=== PATIENT | male | born 1950 | race Caucasian/White ===

== ENCOUNTER 2018-07-22 17:19 | Emergency (ER) | payer MEDICARE, BC ==
[~2018-07-22] VITALS: Ht 177.8 cm; Wt 63.6 kg
[2018-07-22 18:27] LABS: CLARITY,URINE CLEAR (Clear); COLOR,URINE YELLOW (Yellow); GLUCOSE, URINE NEGATIVE (Neg); KETONES,URINE NEGATIVE (Neg); LEUKOCYTE ESTERASE ,URINE NEGATIVE (Neg); NITRITES, URINE NEGATIVE (Neg); OCCULT BLOOD,URINE NEGATIVE (Neg); PH,URINE 6.5 (4.8-8.0); PROTEIN,URINE NEGATIVE (Neg); UA COLLECTION TYPE CLN CATCH MIDSTREAM; UROBILINOGEN,URINE 0.2 E.U/dL (0.2-1.0)
[2018-07-22 18:28] LABS: BASOPHILS % (AUTO) 0.3 % (0-1); EOSINOPHILS # (AUTO) 0.4 X10'3 (0-0.9); EOSINOPHILS % (AUTO) 4.1 % (0-6); HEMATOCRIT 38.6 % (42.0-52.0); HEMOGLOBIN 12.9 g/dl (14.0-17.9); LYMPHOCYTES # (AUTO) 1.2 X10'3 (1.1-4.8); LYMPHOCYTES % (AUTO) 12.9 % (21-51); MEAN CORPUSCULAR HEMOGLOBIN 29.6 PG (27.0-31.0); MEAN CORPUSCULAR HGB CONC 33.4 g/dL (33.0-36.5); MEAN CORPUSCULAR VOLUME 88.5 FL (78-98); MEAN PLATELET VOLUME 8.3 FL (7.4-10.4); MONOCYTES # (AUTO) 0.8 X10'3 (0-0.9); MONOCYTES % (AUTO) 8.7 % (2-12); PLATELET COUNT 268 X10'3 (140-440); RED BLOOD COUNT 4.36 X10'6 (4.70-6.10); RED CELL DISTRIBUTION WIDTH 14.4 % (11.5-14.5); WHITE BLOOD COUNT 9.4 X10'3 (4.5-11.0)
[2018-07-22 18:34] LABS: ALANINE AMINOTRANSFERASE 24 U/L (12-78); ALBUMIN 4.4 G/DL (3.4-5.0); ALBUMIN/GLOBULIN RATIO 1.2 (1.1-1.5); ALKALINE PHOSPHATASE 90 IU/L (46-116); ANION GAP 8 (8-16); ASPARTATE AMINO TRANSFERASE 17 U/L (10-37); BILIRUBIN,TOTAL 0.4 MG/DL (0.1-1.0); BLOOD UREA NITROGEN 14 MG/DL (7-18); BUN/CREATININE RATIO 14.7 (5.4-32.0); CALCIUM 9.4 MG/DL (8.5-10.1); CHLORIDE 103 MMOL/L (99-107); CREATININE 0.95 MG/DL (0.60-1.10); GLUCOSE 104 MG/DL (70-104); POTASSIUM 4.4 MMOL/L (3.5-5.1); SODIUM 143 MMOL/L (135-145); TOTAL CARBON DIOXIDE 32.2 MMOL/L (24-32); TOTAL PROTEIN 8.1 G/DL (6.4-8.2); eGFR 79 ML/MIN
[2018-07-22] MEDS ORDERED: morphine 4 MG/ML inj SYRINge IV ONE (18:50)
[2018-07-22] MEDS ORDERED: ondansetron/PF 4mg/2ml inj IV ONE (18:50)
[2018-07-22] MEDS ORDERED: normal saline 1000ml 1,000 ML IV ONE (19:50)
[2018-07-22] MEDS ORDERED: iohexol 350MG/ML 100ml bottle IV ONE (20:01)
[2018-07-22 20:15] VITALS: BP 173/101
[2018-07-22] MEDS ORDERED: POLY119P2 PO (21:49)
== END 2018-07-22 21:58 | disposition home or self-care (01) ==
LOC: ER 17:21
DX: K59.00 Constipation, unspecified (principal); K40.90 Unilateral inguinal hernia, without obstruction or gangrene, not specified as recurrent; F03.90 Unspecified dementia, unspecified severity, without behavioral disturbance, psychotic disturbance, mood disturbance, and anxiety; Z88.2 Allergy status to sulfonamides; Z79.899 Other long term (current) drug therapy
CPT/HCPCS: 36415; 74174; 80053; 81003; 83605; 85025; 85610; 96374; 96375; 99284; J2270; J2405; J7030; Q9967

== ENCOUNTER 2018-10-09 20:32 | Inpatient (IN) | payer MEDICARE, BC ==
[~2018-10-09] VITALS: Ht 180.3 cm; Wt 61.4 kg
[~2018-10-09 20:32] MED LIST: POLY119P2 PO
[2018-10-09 21:24] LABS: BASOPHILS % (AUTO) 0.5 % (0-1); EOSINOPHILS # (AUTO) 0.3 X10'3 (0-0.9); EOSINOPHILS % (AUTO) 3.3 % (0-6); HEMATOCRIT 38.4 % (42.0-52.0); HEMOGLOBIN 12.8 g/dl (14.0-17.9); LYMPHOCYTES # (AUTO) 1.8 X10'3 (1.1-4.8); LYMPHOCYTES % (AUTO) 19.4 % (21-51); MEAN CORPUSCULAR HEMOGLOBIN 29.8 PG (27.0-31.0); MEAN CORPUSCULAR HGB CONC 33.3 g/dL (33.0-36.5); MEAN CORPUSCULAR VOLUME 89.5 FL (78-98); MEAN PLATELET VOLUME 8.2 FL (7.4-10.4); MONOCYTES # (AUTO) 0.6 X10'3 (0-0.9); MONOCYTES % (AUTO) 6.9 % (2-12); NEUTROPHILS # (AUTO) 6.4 X10'3 (1.8-7.7); NEUTROPHILS % (AUTO) 69.9 % (42-75); PLATELET COUNT 277 X10'3 (140-440); RED BLOOD COUNT 4.29 X10'6 (4.70-6.10); RED CELL DISTRIBUTION WIDTH 15.2 % (11.5-14.5); WHITE BLOOD COUNT 9.2 X10'3 (4.5-11.0)
[2018-10-09 21:35] LABS: ALANINE AMINOTRANSFERASE 56 U/L (12-78); ALBUMIN 4.1 G/DL (3.4-5.0); ALBUMIN/GLOBULIN RATIO 1.2 (1.1-1.5); ALKALINE PHOSPHATASE 93 IU/L (46-116); ANION GAP 7 (8-16); ASPARTATE AMINO TRANSFERASE 64 U/L (10-37); BILIRUBIN,TOTAL 0.3 MG/DL (0.1-1.0); BLOOD UREA NITROGEN 19 MG/DL (7-18); BUN/CREATININE RATIO 18.3 (5.4-32.0); CALCIUM 9.3 MG/DL (8.5-10.1); CHLORIDE 104 MMOL/L (99-107); CREATININE 1.04 MG/DL (0.60-1.10); GLUCOSE 154 MG/DL (70-104); POTASSIUM 4.6 MMOL/L (3.5-5.1); SODIUM 144 MMOL/L (135-145); TOTAL CARBON DIOXIDE 32.6 MMOL/L (24-32); TOTAL PROTEIN 7.5 G/DL (6.4-8.2); eGFR 71 ML/MIN
[2018-10-09 22:17] LABS: AMYLASE 1135 U/L (25-115); LIPASE 18187 U/L (73-393)
[2018-10-09] MEDS ORDERED: normal saline 1000ML IV soln IVB ONE (22:25)
[2018-10-09] MEDS ORDERED: iohexol 300mg/ml 100ml inj. ONE (22:29)
[2018-10-10] MEDS ORDERED: mag hydrox/Alum hydrox/simeth 30ml oral suspension PO PRN (00:30)
[2018-10-10] MEDS ORDERED: ondansetron/PF 4mg/2ml inj IV PRN (00:30)
[2018-10-10] MEDS ORDERED: acetaminophen 325mg tablet PO PRN (00:30)
[2018-10-10] MEDS ORDERED: normal saline 1000ml 1,000 ML IV SCH (00:30)
[2018-10-10] MEDS ORDERED: HYDROmorphone inj. 0.5 MG/0.5 ML DISP.SYRIN IV PRN (00:30)
[2018-10-10] MEDS ORDERED: magnesium hydroxide 30ml (MOM) UD suspension PO PRN (00:30)
[2018-10-10] MEDS ORDERED: MEMA5TAB PO (00:32)
[2018-10-10] MEDS ORDERED: DONE5TAB7 PO (00:32)
[2018-10-10] MEDS ORDERED: MIRT15TA PO (00:32)
--- NOTE | 2018-10-10 00:35 | NUR ---
PT AT BS WITH CAREGIVER USING URINAL
--- NOTE | 2018-10-10 00:53 | NUR ---
Lenny, caregiver [phone]
[2018-10-10 01:04] LABS: CLARITY,URINE CLEAR (Clear); COLOR,URINE YELLOW (Yellow); GLUCOSE, URINE NEGATIVE (Neg); KETONES,URINE NEGATIVE (Neg); LEUKOCYTE ESTERASE ,URINE NEGATIVE (Neg); NITRITES, URINE NEGATIVE (Neg); OCCULT BLOOD,URINE NEGATIVE (Neg); PH,URINE 7.5 (4.8-8.0); PROTEIN,URINE NEGATIVE (Neg); UROBILINOGEN,URINE 0.2 E.U/dL (0.2-1.0)
--- NOTE | 2018-10-10 01:10 | NUR ---
moved pt to room 15 near nurses station. tucked him in to bed, lights dimmed.
[2018-10-10 01:16] LABS: UA COLLECTION TYPE VOIDED
[2018-10-10] MEDS: HYDROmorphone 1 mg/ml syringe IV PRN (01:59)
--- NOTE | 2018-10-10 02:52 | NUR ---
pt continues to sleep
[2018-10-10] MEDS ORDERED: mirtazapine 15mg tablet PO SCH (08:50)
[2018-10-10] MEDS ORDERED: magnesium 4gm in 100ml NS 100 ML IV PRN (08:50)
[2018-10-10] MEDS ORDERED: potassium CL 10mEq/100ml bag 100 ML IV PRN (08:50)
[2018-10-10] MEDS ORDERED: magnesium Cl slow-release 64mg tablet PO PRN (08:50)
[2018-10-10] MEDS ORDERED: potassium Cl 20 mEq SR tablet PO PRN ×2 (08:50)
[2018-10-10] MEDS: heparin, porcine 5000 units/ml vial SQ SCH ×2 (08:57→19:40)
[2018-10-10] MEDS ORDERED: mirtazapine 15mg tablet PO PRN (08:58)
[2018-10-10] MEDS: dextrose 5%-normal saline 1,000 ML IV SCH ×2 (09:08→22:40)
[2018-10-10 10:03] LABS: CHOLESTEROL 142 MG/DL (0-200); HDL CHOLESTEROL 48 MG/DL (35-60); LDL CHOLESTEROL 80 MG/DL (50-100); TRIGLYCERIDES 67 MG/DL (20-135)
[2018-10-10 10:15] LABS: LIPASE 6199 U/L (73-393)
--- NOTE | 2018-10-10 12:41 | NUR ---
LILLIE LAWRENCE AT BEDSIDE #[phone]
--- NOTE | 2018-10-10 12:41 | NUR ---
CHANGED LINENS, PT ON BED, NO DIAPER ON CHUX PER CAREGIVER.
--- NOTE | 2018-10-10 14:54 | NUR ---
PT TRIED TO LEAVE THE ROOM, IV PULLED OUT. REMOVED, CANNULA INTACT. NOTIFIED SERAFIN REY.
--- NOTE | 2018-10-10 15:30 | NUR ---
Received report from CANDIDO Salgado. patient arrived to floor. VSS. no complaints. bed alarm on.
[2018-10-10 15:35] VITALS: BP 130/79
--- NOTE | 2018-10-10 18:10 | NUR ---
Received report from CANDIDO Parsno. Patient is awake and alert on room air, in no apparent distress. Call light and items of frequent use within reach. Will continue to monitor.
--- NOTE | 2018-10-10 18:12 | NUR ---
Problems reprioritized. Patient report given, questions answered & plan of care reviewed with CANDIDO Solis and CANDIDO James.
[2018-10-10 20:00] VITALS: BP 148/78
[2018-10-11] VITALS: BP 121/74
[2018-10-11] MEDS: HYDROmorphone 1 mg/ml syringe IV PRN (00:24)
[2018-10-11] MEDS: LORazepam 2 mg/ml vial IV PRN ×2 (01:42→07:30)
--- NOTE | 2018-10-11 06:35 | NUR ---
Problems reprioritized. Patient report given, questions answered & plan of care reviewed with CANDIDO Murrell.
--- NOTE | 2018-10-11 06:48 | NUR ---
Patient in room [facility] 358. I have received report from Irma REY and Erika REY and had the opportunity to ask questions and assume patient care.
[2018-10-11 07:00] VITALS: BP 162/100
[2018-10-11 07:42] LABS: ALANINE AMINOTRANSFERASE 62 U/L (12-78); ALBUMIN 3.7 G/DL (3.4-5.0); ALBUMIN/GLOBULIN RATIO 1.2 (1.1-1.5); ALKALINE PHOSPHATASE 100 IU/L (46-116); ANION GAP 5 (8-16); ASPARTATE AMINO TRANSFERASE 28 U/L (10-37); BILIRUBIN,TOTAL 0.5 MG/DL (0.1-1.0); BLOOD UREA NITROGEN 9 MG/DL (7-18); BUN/CREATININE RATIO 9.6 (5.4-32.0); CALCIUM 9.1 MG/DL (8.5-10.1); CHLORIDE 111 MMOL/L (99-107); CHOL/HDL RATIO 3.2 (0.00-4.99); CHOLESTEROL 177 MG/DL (0-200); CREATININE 0.94 MG/DL (0.60-1.10); GLUCOSE 89 MG/DL (70-104); HDL CHOLESTEROL 56 MG/DL (35-60); LDL CHOLESTEROL 96 MG/DL (50-100); LIPASE 526 U/L (73-393); PHOSPHORUS 3.7 MG/DL (2.3-4.5); POTASSIUM 4.1 MMOL/L (3.5-5.1); SODIUM 149 MMOL/L (135-145); TOTAL CARBON DIOXIDE 32.7 MMOL/L (24-32); TOTAL PROTEIN 6.9 G/DL (6.4-8.2); TRIGLYCERIDES 110 MG/DL (20-135); eGFR 79 ML/MIN
[2018-10-11 08:15] LABS: BASOPHILS % (AUTO) 0.5 % (0-1); EOSINOPHILS # (AUTO) 0.4 X10'3 (0-0.9); EOSINOPHILS % (AUTO) 4.9 % (0-6); HEMATOCRIT 36.6 % (42.0-52.0); HEMOGLOBIN 12.2 g/dl (14.0-17.9); LYMPHOCYTES % (AUTO) 22.1 % (21-51); MEAN CORPUSCULAR HEMOGLOBIN 29.7 PG (27.0-31.0); MEAN CORPUSCULAR HGB CONC 33.2 g/dL (33.0-36.5); MEAN CORPUSCULAR VOLUME 89.5 FL (78-98); MEAN PLATELET VOLUME 8.5 FL (7.4-10.4); MONOCYTES # (AUTO) 0.5 X10'3 (0-0.9); MONOCYTES % (AUTO) 5.9 % (2-12); NEUTROPHILS # (AUTO) 5.9 X10'3 (1.8-7.7); NEUTROPHILS % (AUTO) 66.6 % (42-75); PLATELET COUNT 256 X10'3 (140-440); RED BLOOD COUNT 4.09 X10'6 (4.70-6.10); RED CELL DISTRIBUTION WIDTH 15.1 % (11.5-14.5); WHITE BLOOD COUNT 8.8 X10'3 (4.5-11.0)
[2018-10-11] MEDS: memantine 5mg tablet PO SCH (09:02)
[2018-10-11] MEDS: donepezil 5mg tablet PO SCH (09:02)
[2018-10-11] MEDS: heparin, porcine 5000 units/ml vial SQ SCH ×2 (09:03→20:20)
--- NOTE | 2018-10-11 09:52 | NUR ---
Patient's friend/caregiver Lenny came by to visit patient. He expressed concern that why patient is so confused and that it is not his baseline. He asked me what medication he is on and was accusing the nursing staff "overmedicating the patient". I reviewed the list of medication being given to the patient including the dose and frequency. The only new medication in his eMAR was the Ativan. I explained to him that patient has been trying to get out of bed and pulling his IV that's why he has a sitter and been giving Ativan. Lenny requesting not to give this patient Ativan anymore and to "tie him" if needed. I asked him if he is the POA to make decision for the patient, patient stated no but the conservator Randi. I gave Randi a phone to give update about the patient and she told me that Lenny is allowed to receive information about the patient. Will discuss the medication to the doctor. Randi agreed not to tie patient unless its really necessary.
[2018-10-11] MEDS ORDERED: OLANZapine 5mg rapidly disint. tablet PO PRN (10:25)
[2018-10-11 11:00] VITALS: BP 117/70
[2018-10-11] MEDS: dextrose 5%-normal saline 1,000 ML IV SCH (13:19)
--- NOTE | 2018-10-11 18:13 | NUR ---
Received report from CANDIDO Murrell. Patient is awake and alert on room air, in no apparent distress. Call light and items of frequent use within reach, will continue to monitor.
--- NOTE | 2018-10-11 18:31 | NUR ---
Problems reprioritized. Patient report given, questions answered & plan of care reviewed with Irma REY.
[2018-10-11 20:00] VITALS: BP 147/99
[2018-10-12] MEDS: dextrose 5%-normal saline 1,000 ML IV SCH ×2 (01:35→14:28)
[2018-10-12 05:41] LABS: BASOPHILS # (AUTO) 0.1 X10'3 (0-0.2); BASOPHILS % (AUTO) 0.7 % (0-1); EOSINOPHILS # (AUTO) 0.3 X10'3 (0-0.9); EOSINOPHILS % (AUTO) 3.4 % (0-6); HEMATOCRIT 38.5 % (42.0-52.0); HEMOGLOBIN 12.8 g/dl (14.0-17.9); LYMPHOCYTES # (AUTO) 1.4 X10'3 (1.1-4.8); MEAN CORPUSCULAR HEMOGLOBIN 29.4 PG (27.0-31.0); MEAN CORPUSCULAR HGB CONC 33.2 g/dL (33.0-36.5); MEAN CORPUSCULAR VOLUME 88.6 FL (78-98); MEAN PLATELET VOLUME 8.3 FL (7.4-10.4); MONOCYTES # (AUTO) 0.7 X10'3 (0-0.9); MONOCYTES % (AUTO) 9.5 % (2-12); NEUTROPHILS # (AUTO) 5.1 X10'3 (1.8-7.7); NEUTROPHILS % (AUTO) 68.4 % (42-75); PLATELET COUNT 271 X10'3 (140-440); RED BLOOD COUNT 4.35 X10'6 (4.70-6.10); RED CELL DISTRIBUTION WIDTH 15.2 % (11.5-14.5); WHITE BLOOD COUNT 7.5 X10'3 (4.5-11.0)
[2018-10-12 05:55] LABS: ALANINE AMINOTRANSFERASE 50 U/L (12-78); ALBUMIN 3.6 G/DL (3.4-5.0); ALKALINE PHOSPHATASE 99 IU/L (46-116); ANION GAP 7 (8-16); ASPARTATE AMINO TRANSFERASE 16 U/L (10-37); BILIRUBIN,TOTAL 0.4 MG/DL (0.1-1.0); BLOOD UREA NITROGEN 12 MG/DL (7-18); BUN/CREATININE RATIO 11.7 (5.4-32.0); CALCIUM 9.2 MG/DL (8.5-10.1); CHLORIDE 109 MMOL/L (99-107); CREATININE 1.03 MG/DL (0.60-1.10); GLUCOSE 99 MG/DL (70-104); PHOSPHORUS 3.6 MG/DL (2.3-4.5); POTASSIUM 4.1 MMOL/L (3.5-5.1); SODIUM 145 MMOL/L (135-145); TOTAL CARBON DIOXIDE 29.3 MMOL/L (24-32); TOTAL PROTEIN 7.1 G/DL (6.4-8.2); eGFR 71 ML/MIN
[2018-10-12 06:00] VITALS: BP 146/79
--- NOTE | 2018-10-12 06:29 | NUR ---
Problems reprioritized. Patient report given, questions answered & plan of care reviewed with CANDIDO Monte.
--- NOTE | 2018-10-12 06:49 | NUR ---
Patient in room [facility] 358. I have received report from CANDIDO Solis and had the opportunity to ask questions and assume patient care.
[2018-10-12] MEDS: memantine 5mg tablet PO SCH (09:24)
[2018-10-12] MEDS: heparin, porcine 5000 units/ml vial SQ SCH ×2 (09:25→20:54)
[2018-10-12] MEDS: donepezil 5mg tablet PO SCH (09:25)
[2018-10-12 11:00] VITALS: BP 117/77
[2018-10-12 18:00] VITALS: BP 124/81
--- NOTE | 2018-10-12 18:50 | NUR ---
Patient in room [facility] 358. I have received report from CANDIDO Monte and had the opportunity to ask questions and assume patient care.
--- NOTE | 2018-10-12 18:58 | NUR ---
Problems reprioritized. Patient report given, questions answered & plan of care reviewed with CANDIDO Salazar.
[2018-10-13] VITALS: BP 123/80
[2018-10-13] MEDS: dextrose 5%-normal saline 1,000 ML IV SCH ×2 (03:30→23:58)
[2018-10-13 05:31] LABS: ALANINE AMINOTRANSFERASE 35 U/L (12-78); ALKALINE PHOSPHATASE 76 IU/L (46-116); ANION GAP 5 (8-16); ASPARTATE AMINO TRANSFERASE 11 U/L (10-37); BILIRUBIN,TOTAL 0.4 MG/DL (0.1-1.0); BLOOD UREA NITROGEN 18 MG/DL (7-18); CALCIUM 8.7 MG/DL (8.5-10.1); CHLORIDE 112 MMOL/L (99-107); GLUCOSE 100 MG/DL (70-104); PHOSPHORUS 3.7 MG/DL (2.3-4.5); SODIUM 146 MMOL/L (135-145); TOTAL CARBON DIOXIDE 29.2 MMOL/L (24-32); TOTAL PROTEIN 5.9 G/DL (6.4-8.2); eGFR 83 ML/MIN
[2018-10-13 05:34] LABS: BASOPHILS % (AUTO) 0.5 % (0-1); EOSINOPHILS # (AUTO) 0.4 X10'3 (0-0.9); EOSINOPHILS % (AUTO) 6.5 % (0-6); HEMATOCRIT 33.8 % (42.0-52.0); HEMOGLOBIN 11.4 g/dl (14.0-17.9); LYMPHOCYTES # (AUTO) 1.8 X10'3 (1.1-4.8); LYMPHOCYTES % (AUTO) 29.6 % (21-51); MEAN CORPUSCULAR HGB CONC 33.7 g/dL (33.0-36.5); MEAN PLATELET VOLUME 8.3 FL (7.4-10.4); MONOCYTES # (AUTO) 0.6 X10'3 (0-0.9); MONOCYTES % (AUTO) 9.6 % (2-12); NEUTROPHILS # (AUTO) 3.3 X10'3 (1.8-7.7); NEUTROPHILS % (AUTO) 53.8 % (42-75); PLATELET COUNT 231 X10'3 (140-440); RED BLOOD COUNT 3.79 X10'6 (4.70-6.10); WHITE BLOOD COUNT 6.1 X10'3 (4.5-11.0)
--- NOTE | 2018-10-13 06:51 | NUR ---
Problems reprioritized. Patient report given, questions answered & plan of care reviewed with CANDIDO Murrell.
--- NOTE | 2018-10-13 06:54 | NUR ---
Patient in room [facility] 358. I have received report from Martin REY and had the opportunity to ask questions and assume patient care.
[2018-10-13 07:00] VITALS: BP 117/87
[2018-10-13] MEDS: donepezil 5mg tablet PO SCH (08:41)
[2018-10-13] MEDS: heparin, porcine 5000 units/ml vial SQ SCH ×2 (08:41→21:44)
[2018-10-13] MEDS: memantine 5mg tablet PO SCH (08:41)
[2018-10-13 11:00] VITALS: BP 117/87
--- NOTE | 2018-10-13 13:15 | NUR ---
Dr. Munguia seen and examined patient. Patient sitting on a recliner eating his lunch without any assist and able to make conversation.
[2018-10-13 18:00] VITALS: BP 130/72
--- NOTE | 2018-10-13 18:07 | NUR ---
Patient in room [facility] 358. I have received report from CANDIDO Murrell and had the opportunity to ask questions and assume patient care.
--- NOTE | 2018-10-13 18:26 | NUR ---
Problems reprioritized. Patient report given, questions answered & plan of care reviewed with Martin REY.
[2018-10-14] VITALS: BP 136/69
[2018-10-14 06:10] LABS: BASOPHILS % (AUTO) 0.8 % (0-1); EOSINOPHILS # (AUTO) 0.4 X10'3 (0-0.9); EOSINOPHILS % (AUTO) 5.9 % (0-6); HEMATOCRIT 33.4 % (42.0-52.0); HEMOGLOBIN 11.2 g/dl (14.0-17.9); LYMPHOCYTES # (AUTO) 1.6 X10'3 (1.1-4.8); LYMPHOCYTES % (AUTO) 24.6 % (21-51); MEAN CORPUSCULAR HEMOGLOBIN 29.5 PG (27.0-31.0); MEAN CORPUSCULAR HGB CONC 33.4 g/dL (33.0-36.5); MEAN CORPUSCULAR VOLUME 88.3 FL (78-98); MEAN PLATELET VOLUME 8.2 FL (7.4-10.4); MONOCYTES # (AUTO) 0.6 X10'3 (0-0.9); MONOCYTES % (AUTO) 9.2 % (2-12); NEUTROPHILS # (AUTO) 3.8 X10'3 (1.8-7.7); NEUTROPHILS % (AUTO) 59.5 % (42-75); PLATELET COUNT 232 X10'3 (140-440); RED BLOOD COUNT 3.78 X10'6 (4.70-6.10); RED CELL DISTRIBUTION WIDTH 14.9 % (11.5-14.5); WHITE BLOOD COUNT 6.5 X10'3 (4.5-11.0)
[2018-10-14] MEDS: dextrose 5%-normal saline 1,000 ML IV SCH (06:15)
--- NOTE | 2018-10-14 06:35 | NUR ---
Problems reprioritized. Patient report given, questions answered & plan of care reviewed with CANDIDO Murrell.
[2018-10-14 06:36] LABS: ALANINE AMINOTRANSFERASE 32 U/L (12-78); ALBUMIN 2.8 G/DL (3.4-5.0); ALBUMIN/GLOBULIN RATIO 0.9 (1.1-1.5); ALKALINE PHOSPHATASE 70 IU/L (46-116); ANION GAP 4 (8-16); ASPARTATE AMINO TRANSFERASE 17 U/L (10-37); BILIRUBIN,TOTAL 0.4 MG/DL (0.1-1.0); BLOOD UREA NITROGEN 15 MG/DL (7-18); BUN/CREATININE RATIO 16.1 (5.4-32.0); CALCIUM 8.3 MG/DL (8.5-10.1); CHLORIDE 112 MMOL/L (99-107); CREATININE 0.93 MG/DL (0.60-1.10); GLUCOSE 207 MG/DL (70-104); PHOSPHORUS 3.5 MG/DL (2.3-4.5); POTASSIUM 4.3 MMOL/L (3.5-5.1); SODIUM 147 MMOL/L (135-145); TOTAL CARBON DIOXIDE 30.8 MMOL/L (24-32); TOTAL PROTEIN 5.9 G/DL (6.4-8.2); eGFR 80 ML/MIN
--- NOTE | 2018-10-14 06:50 | NUR ---
Patient in room [facility] 358. I have received report from Martin REY and had the opportunity to ask questions and assume patient care.
[2018-10-14 07:00] VITALS: BP 151/72
[2018-10-14] MEDS: donepezil 5mg tablet PO SCH (08:28)
[2018-10-14] MEDS: memantine 5mg tablet PO SCH (08:28)
[2018-10-14] MEDS: heparin, porcine 5000 units/ml vial SQ SCH (08:29)
--- NOTE | 2018-10-14 09:24 | NUR ---
Patient's peripheral IV catheter was found completely out by the staff. When I asked the patient if he pulled it out, he did not respond
[2018-10-14 11:00] VITALS: BP 146/72
--- NOTE | 2018-10-14 13:15 | NUR ---
Report given to Natalia, spoke to Aissatou CAST. Hands off report given to [employer] personnel. Diaper applied as patient is incontinent of urine. Patient's 2 hearing aids was in the patient's ears. Other belongings placed inside belonging bags that were sent with the patient upon discharge.
== END 2018-10-14 13:18 | DRG 440 ==
LOC: ER 20:33 → SUR 3N 10-10 15:30 → CMPBEDREQ 10-10 19:48
PROVIDERS: ADMIT Internal Medicine; ATTEND Family Medicine
PROC: BW241ZZ Computerized Tomography (CT Scan) of Chest and Abdomen using Low Osmolar Contrast (ICD-10-PCS; principal; 2018-10-09)
DX: K85.90 Acute pancreatitis without necrosis or infection, unspecified (principal); R13.10 Dysphagia, unspecified; F03.90 Unspecified dementia, unspecified severity, without behavioral disturbance, psychotic disturbance, mood disturbance, and anxiety; Z88.2 Allergy status to sulfonamides; Z87.891 Personal history of nicotine dependence; Z79.899 Other long term (current) drug therapy
CPT/HCPCS: 36415; 71045; 74177; 76700; 80053; 80061; 81003; 82150; 82948; 83605; 83690; 83735; 84100; 84484; 85025; 87081; 92508; 92616; 93005; 96361; 96374; 97116; 97161; 97530; 99285; G0378; J1170; J1644; J2060; J7042; Q9967

== ENCOUNTER 2019-01-02 13:44 | Emergency (ER) | payer MEDICARE, BC ==
[~2019-01-02] VITALS: Ht 180.3 cm; Wt 62.3 kg
[~2019-01-02 13:44] MED LIST changes: +DONE5TAB7 PO; +MEMA5TAB PO; +MIRT15TA PO
[2019-01-02 14:12] VITALS: BP 124/64
== END 2019-01-02 15:17 | disposition home or self-care (01) ==
LOC: ER 13:45
DX: K40.90 Unilateral inguinal hernia, without obstruction or gangrene, not specified as recurrent (principal); F03.90 Unspecified dementia, unspecified severity, without behavioral disturbance, psychotic disturbance, mood disturbance, and anxiety; Z88.2 Allergy status to sulfonamides; Z79.899 Other long term (current) drug therapy; Z86.73 Personal history of transient ischemic attack (TIA), and cerebral infarction without residual deficits
CPT/HCPCS: 99284

== ENCOUNTER 2019-06-28 23:51 | Emergency (ER) | payer MEDICARE, BC ==
[~2019-06-28] VITALS: Ht 177.8 cm; Wt 68.2 kg
--- NOTE | 2019-06-29 00:04 | NUR ---
relieving RN for break, Dr Delacruz at bedside. Pt is resting quietly on gurney, resp even and unlabored, lac to upper lip, no bleeding at this time, pt has h/o dementia, GCS 14, oriented to person only,
[2019-06-29] MEDS ORDERED: TETanus/Pertussis (Acell)/Diphther VAC/PF (Tdap-Adult) 0.5ml syringe IMVAC ONE (00:10)
[2019-06-29] MEDS ORDERED: LIDOcaine 1% W/epiNEPHrine 1:200,000 10ml vial IJ ONE (00:10)
--- NOTE | 2019-06-29 00:22 | NUR ---
MD Delacruz has finished suturing the patient's upper lip at this time.
[2019-06-29 01:27] VITALS: BP 137/73
== END 2019-06-29 01:31 | disposition home or self-care (01) ==
LOC: ER 23:52
DX: S06.0X0A Concussion without loss of consciousness, initial encounter (principal); S02.5XXA Fracture of tooth (traumatic), initial encounter for closed fracture; S01.511A Laceration without foreign body of lip, initial encounter; F03.90 Unspecified dementia, unspecified severity, without behavioral disturbance, psychotic disturbance, mood disturbance, and anxiety; Z86.73 Personal history of transient ischemic attack (TIA), and cerebral infarction without residual deficits; Z88.2 Allergy status to sulfonamides; Z79.899 Other long term (current) drug therapy; W10.9XXA Fall (on) (from) unspecified stairs and steps, initial encounter; Y93.89 Activity, other specified; Y92.89 Other specified places as the place of occurrence of the external cause; Y99.8 Other external cause status
CPT/HCPCS: 12011; 70450; 70486; 72125; 90471; 90715; 99285

== ENCOUNTER 2020-04-11 18:53 | Emergency (ER) | payer MEDICARE, BC ==
[~2020-04-11] VITALS: Ht 180.3 cm; Wt 59.9 kg
[~2020-04-11 18:53] MED LIST changes: +MIRT-116 PO; -MIRT15TA PO
--- NOTE | 2020-04-11 19:30 | NUR ---
Dr. Delacruz notified of pt and situation
[2020-04-11] MEDS ORDERED: TETanus/Pertussis (Acell)/Diphther VAC/PF (Tdap-Adult) 0.5ml syringe IMVAC ONE (20:15)
[2020-04-11] MEDS ORDERED: LIDOcaine 1% W/epiNEPHrine 1:200,000 10ml vial IJ ONE (20:15)
[2020-04-11 21:26] VITALS: BP 127/67
== END 2020-04-11 21:27 | disposition home or self-care (01) ==
LOC: ER 18:54
DX: S01.111A Laceration without foreign body of right eyelid and periocular area, initial encounter (principal); F03.90 Unspecified dementia, unspecified severity, without behavioral disturbance, psychotic disturbance, mood disturbance, and anxiety; Z86.73 Personal history of transient ischemic attack (TIA), and cerebral infarction without residual deficits; Z88.2 Allergy status to sulfonamides; Z79.899 Other long term (current) drug therapy; W05.0XXA Fall from non-moving wheelchair, initial encounter; Y93.89 Activity, other specified; Y92.89 Other specified places as the place of occurrence of the external cause; Y99.8 Other external cause status
CPT/HCPCS: 12011; 70450; 90471; 90715; 99284

== ENCOUNTER 2020-07-12 16:05 | Emergency (ER) | payer MEDICARE, BC ==
[~2020-07-12] VITALS: Ht 177.8 cm; Wt 59.1 kg
[2020-07-12 18:57] VITALS: BP 136/76
== END 2020-07-12 19:00 | disposition home or self-care (01) ==
LOC: ER 16:06
DX: F03.90 Unspecified dementia, unspecified severity, without behavioral disturbance, psychotic disturbance, mood disturbance, and anxiety (principal); Z88.2 Allergy status to sulfonamides; Z79.899 Other long term (current) drug therapy
CPT/HCPCS: 74018; 99283

== ENCOUNTER 2020-09-14 | Emergency (ER) | payer MEDICARE, BC ==
[~2020-09-14] VITALS: Ht 180.3 cm; Wt 59.0 kg
[2020-09-14 00:03] VITALS: BP 129/49
[2020-09-14 01:24] LABS: BASOPHILS % (AUTO) 0.2 % (0-1); EOSINOPHILS # (AUTO) 0.3 X10'3 (0-0.9); EOSINOPHILS % (AUTO) 3.6 % (0-6); HEMATOCRIT 34.3 % (42.0-52.0); HEMOGLOBIN 11.2 g/dl (14.0-17.9); LYMPHOCYTES # (AUTO) 0.8 X10'3 (1.1-4.8); LYMPHOCYTES % (AUTO) 11.9 % (21-51); MEAN CORPUSCULAR HEMOGLOBIN 27.6 PG (27.0-31.0); MEAN CORPUSCULAR HGB CONC 32.6 g/dL (33.0-36.5); MEAN CORPUSCULAR VOLUME 84.5 FL (78-98); MEAN PLATELET VOLUME 8.3 FL (7.4-10.4); MONOCYTES # (AUTO) 0.7 X10'3 (0-0.9); MONOCYTES % (AUTO) 9.8 % (2-12); NEUTROPHILS # (AUTO) 5.3 X10'3 (1.8-7.7); NEUTROPHILS % (AUTO) 74.5 % (42-75); PLATELET COUNT 304 X10'3 (140-440); RED BLOOD COUNT 4.06 X10'6 (4.70-6.10); RED CELL DISTRIBUTION WIDTH 16.9 % (11.5-14.5); WHITE BLOOD COUNT 7.1 X10'3 (4.5-11.0)
[2020-09-14 01:48] LABS: ALANINE AMINOTRANSFERASE 16 U/L (12-78); ALBUMIN 3.2 G/DL (3.4-5.0); ALBUMIN/GLOBULIN RATIO 0.9 (1.1-1.5); ALKALINE PHOSPHATASE 71 IU/L (46-116); ANION GAP 7 (8-16); ASPARTATE AMINO TRANSFERASE 13 U/L (10-37); BILIRUBIN,TOTAL 0.3 MG/DL (0.1-1.0); BLOOD UREA NITROGEN 24 MG/DL (7-18); BUN/CREATININE RATIO 29.3 (5.4-32.0); CALCIUM 8.6 MG/DL (8.5-10.1); CHLORIDE 109 MMOL/L (99-107); CREATININE 0.82 MG/DL (0.60-1.10); GLUCOSE 96 MG/DL (70-104); LIPASE 230 U/L (73-393); POTASSIUM 3.9 MMOL/L (3.5-5.1); SODIUM 147 MMOL/L (135-145); TOTAL PROTEIN 6.9 G/DL (6.4-8.2); eGFR > 90 ML/MIN
[2020-09-14] MEDS ORDERED: iohexol 300mg/ml 100ml inj. ONE (01:52)
[2020-09-14] MEDS ORDERED: magnesium hydroxide 30ml (MOM) UD suspension PO ONE (03:50)
--- NOTE | 2020-09-14 05:10 | NUR ---
Patient sitting on bedside commode after soap suds enema attempting to have a bowel movement.
[2020-09-14] MEDS ORDERED: MAGN400O6 PO (06:31)
== END 2020-09-14 06:38 | disposition home or self-care (01) ==
LOC: ER
DX: K59.00 Constipation, unspecified (principal); F03.90 Unspecified dementia, unspecified severity, without behavioral disturbance, psychotic disturbance, mood disturbance, and anxiety; Z86.73 Personal history of transient ischemic attack (TIA), and cerebral infarction without residual deficits; Z88.2 Allergy status to sulfonamides; Z79.899 Other long term (current) drug therapy
CPT/HCPCS: 36415; 74177; 80053; 83690; 85025; 99285; Q9967

== ENCOUNTER 2020-12-21 11:43 | Inpatient (IN) | payer MEDICARE, BC ==
[~2020-12-21] VITALS: Ht 170.2 cm; Wt 34.0 kg
[~2020-12-21 11:43] MED LIST changes: +MAGN400O6 PO
[2020-12-21 12:24] LABS: BASOPHILS % (AUTO) 0.1 % (0-1); EOSINOPHILS % (AUTO) 0 % (0-6); HEMATOCRIT 35.7 % (42.0-52.0); HEMOGLOBIN 11.8 g/dl (14.0-17.9); LYMPHOCYTES # (AUTO) 0.2 X10'3 (1.1-4.8); LYMPHOCYTES % (AUTO) 2.2 % (21-51); MEAN CORPUSCULAR HEMOGLOBIN 27.7 PG (27.0-31.0); MEAN CORPUSCULAR VOLUME 84.1 FL (78-98); MEAN PLATELET VOLUME 8.9 FL (7.4-10.4); MONOCYTES # (AUTO) 0.2 X10'3 (0-0.9); MONOCYTES % (AUTO) 1.8 % (2-12); NEUTROPHILS # (AUTO) 9.9 X10'3 (1.8-7.7); NEUTROPHILS % (AUTO) 95.9 % (42-75); PLATELET COUNT 225 X10'3 (140-440); RED BLOOD COUNT 4.24 X10'6 (4.70-6.10); RED CELL DISTRIBUTION WIDTH 15.2 % (11.5-14.5); WHITE BLOOD COUNT 10.4 X10'3 (4.5-11.0)
[2020-12-21] MEDS ORDERED: levoFLOXACIN-Levaquin 750MG/D5 150 ML IV ONE (12:30)
[2020-12-21] MEDS ORDERED: CefTRIAXone 2gm/D5W 50ml BAG 50 ML IV ONE (12:30)
[2020-12-21 12:38] LABS: ALANINE AMINOTRANSFERASE 23 U/L (12-78); ALBUMIN 2.3 G/DL (3.4-5.0); ALBUMIN/GLOBULIN RATIO 0.4 (1.1-1.5); ALKALINE PHOSPHATASE 60 IU/L (46-116); ANION GAP 13 (8-16); ASPARTATE AMINO TRANSFERASE 52 U/L (10-37); BILIRUBIN,TOTAL 0.6 MG/DL (0.1-1.0); BLOOD UREA NITROGEN 89 MG/DL (7-18); BUN/CREATININE RATIO 16.2 (5.4-32.0); CALCIUM 8.9 MG/DL (8.5-10.1); CHLORIDE 110 MMOL/L (99-107); GLUCOSE 113 MG/DL (70-104); POTASSIUM 4.1 MMOL/L (3.5-5.1); SODIUM 149 MMOL/L (135-145); TOTAL CARBON DIOXIDE 26.5 MMOL/L (24-32); TOTAL PROTEIN 7.6 G/DL (6.4-8.2); eGFR 10 ML/MIN
[2020-12-21 12:45] LABS: ABG BASE EXCESS 1.8 mmol/L (-2.0-2.0); ABG HCO3 25.1 mmol/L (22.0-26.0); ABG OXYGEN SATURATION 92.6 % (94-97); ABG PCO2 (T) 35.7 mmHg (35.0-48.0); ABG PO2 (T) 66.6 mmHg (75.0-100.0); ALLEN'S TEST POSITIVE; FCOHb 0.2 % (0.0-3.9); FLOW 2 L/min; FMetHb 0.3 % (0.0-1.5); FO2Hb 92.1 % (94-97); PATIENT TEMPERATURE 37.3; TOTAL HEMOGLOBIN 12.8 G/dl (14.0-18.0)
[2020-12-21 12:45] LABS: LIPASE 59 U/L (73-393)
[2020-12-21] MEDS ORDERED: normal saline 1000ML IV soln IVB ONE ×2 (13:00→16:45)
[2020-12-21 13:04] LABS: D-DIMER 3.89 MG/L FEU (0-0.50)
[2020-12-21 13:06] LABS: MAGNESIUM 3.6 MG/DL (1.5-2.4)
[2020-12-21 13:14] LABS: C-REACTIVE PROTEIN 27.73 MG/DL (0.0-0.5)
[2020-12-21 13:28] LABS: PLATELET ESTIMATE NORMAL
[2020-12-21 13:29] LABS: ELLIPTOCYTES 1+; SCHISTOCYTES FEW
--- NOTE | 2020-12-21 14:25 | NUR ---
LAB CALLED PT IS COVID POSITIVE. INFORMED DR. ORNELAS
--- NOTE | 2020-12-21 15:33 | NUR ---
pt back to room after ct. pt remained stable
[2020-12-21] MEDS ORDERED: dextrose 5%-1/2 normal saline 1,000 ML IV ONE (16:45)
[2020-12-21] MEDS ORDERED: UNABLE TO OBTAIN PO (17:13)
[2020-12-21] MEDS ORDERED: acetaminophen 325mg tablet PO PRN (17:50)
[2020-12-21] MEDS ORDERED: magnesium hydroxide 30ml (MOM) UD suspension PO PRN (17:50)
[2020-12-21] MEDS ORDERED: ondansetron/PF 4mg/2ml inj IV PRN (17:50)
[2020-12-21] MEDS ORDERED: mag hydrox/Alum hydrox/simeth 30ml oral suspension PO PRN (17:50)
[2020-12-21] MEDS: normal saline 1000ml 1,000 ML IV SCH (18:22)
[2020-12-21 19:42] LABS: ABG BASE EXCESS -1.6 mmol/L (-2.0-2.0); ABG HCO3 21.4 mmol/L (22.0-26.0); ABG OXYGEN SATURATION 91.5 % (94-97); ABG PCO2 (T) 30.4 mmHg (35.0-48.0); ABG PO2 (T) 64.5 mmHg (75.0-100.0); ALLEN'S TEST POSITIVE; FCOHb 0.3 % (0.0-3.9); FLOW 6 L/min; FMetHb 0.2 % (0.0-1.5); TOTAL HEMOGLOBIN 10.9 G/dl (14.0-18.0)
[2020-12-21] MEDS: dexamethasone inj 10 MG in normal saline 50ml IV soln 50 ML IV SCH (19:54)
[2020-12-21] MEDS: docusate sod 100mg capsule PO SCH (20:00)
[2020-12-21] MEDS ORDERED: dexamethasone sod phosphate 10mg/ml inj IV SCH (20:00)
[2020-12-21] MEDS: heparin, porcine 5000 units/ml vial SQ SCH (20:08)
[2020-12-21 20:29] LABS: CLARITY,URINE CLOUDY (Clear); COLOR,URINE YELLOW (Yellow); GLUCOSE, URINE NEGATIVE (Neg); KETONES,URINE NEGATIVE (Neg); PROTEIN,URINE 30 mg/dl (Neg); UA COLLECTION TYPE FOLEY CATH
[2020-12-21 20:30] LABS: LEUKOCYTE ESTERASE ,URINE NEGATIVE (Neg); NITRITES, URINE POSITIVE (Neg); OCCULT BLOOD,URINE MODERATE (Neg); UROBILINOGEN,URINE 0.2 E.U/dL (0.2-1.0)
[2020-12-21 20:33] LABS: BACTERIA,URINE 3+ /HPF (Neg); STARCH,URINE FEW /HPF (NEGATIVE)
[2020-12-21 20:34] LABS: SQUAMOUS EPITHELIAL CELL,UR FEW /LPF (FEW)
--- NOTE | 2020-12-21 22:00 | NUR ---
PROVIDED ORAL CARE FOR PT. STARTED SECOND IV AND DID SKIN CHECK
[2020-12-22] MEDS: morphine 2 MG/ML inj. syringe IV PRN (03:34)
[2020-12-22] MEDS: normal saline 1000ml 1,000 ML IV SCH ×3 (03:35→23:50)
--- NOTE | 2020-12-22 03:57 | NUR ---
Provided oral care for patient. Cleaned patient thoroughly and applied barrier cream. Patient titrated down to 5L of O2.
[2020-12-22] MEDS: docusate sod 100mg capsule PO SCH ×2 (08:00→20:00)
[2020-12-22] MEDS: dexamethasone inj 10 MG in normal saline 50ml IV soln 50 ML IV SCH ×2 (08:11→20:50)
[2020-12-22] MEDS: CefTRIAXone/D5W-Rocephin 1gm 50 ML IV SCH (08:11)
[2020-12-22] MEDS: heparin, porcine 5000 units/ml vial SQ SCH ×2 (08:12→20:50)
[2020-12-22 08:47] LABS: BASOPHILS % (AUTO) 0.1 % (0-1); EOSINOPHILS % (AUTO) 0 % (0-6); HEMATOCRIT 29.6 % (42.0-52.0); HEMOGLOBIN 9.8 g/dl (14.0-17.9); LYMPHOCYTES # (AUTO) 0.2 X10'3 (1.1-4.8); LYMPHOCYTES % (AUTO) 2.8 % (21-51); MEAN CORPUSCULAR HGB CONC 33.2 g/dL (33.0-36.5); MEAN CORPUSCULAR VOLUME 84.3 FL (78-98); MEAN PLATELET VOLUME 8.9 FL (7.4-10.4); MONOCYTES # (AUTO) 0.1 X10'3 (0-0.9); MONOCYTES % (AUTO) 1.7 % (2-12); NEUTROPHILS # (AUTO) 7.4 X10'3 (1.8-7.7); NEUTROPHILS % (AUTO) 95.4 % (42-75); PLATELET COUNT 167 X10'3 (140-440); RED BLOOD COUNT 3.51 X10'6 (4.70-6.10); RED CELL DISTRIBUTION WIDTH 15.6 % (11.5-14.5); WHITE BLOOD COUNT 7.8 X10'3 (4.5-11.0)
[2020-12-22 09:29] LABS: ALBUMIN 1.7 G/DL (3.4-5.0); ANION GAP 14 (8-16); BLOOD UREA NITROGEN 91 MG/DL (7-18); CALCIUM 8.1 MG/DL (8.5-10.1); CHLORIDE 118 MMOL/L (99-107); CREATININE 5.06 MG/DL (0.60-1.10); GLUCOSE 159 MG/DL (70-104); POTASSIUM 4.3 MMOL/L (3.5-5.1); SODIUM 154 MMOL/L (135-145); TOTAL CARBON DIOXIDE 22.4 MMOL/L (24-32); eGFR 11 ML/MIN
[2020-12-22] MEDS ORDERED: mineral oil 133ml enema RC PRN (11:15)
--- NOTE | 2020-12-22 12:30 | NUR ---
DR LO MADE AWARE OF POSITIVE BLOOD CULTURES
[2020-12-22] MEDS ORDERED: CefTRIAXone/D5W-Rocephin 1gm 50 ML IV SCH (12:40)
[2020-12-22] MEDS ORDERED: vancomycin/NS 1 GM ADD-VANTAGE 250 ML IV ONE (12:40)
[2020-12-22] MEDS: dextrose 5%-1/2 normal saline 1,000 ML IV SCH (12:43)
[2020-12-22] MEDS ORDERED: vancomycin inj. 750 MG in normal saline 250ml IV soln 250 ML IV PRN (13:00)
[2020-12-22] MEDS ORDERED: CHOL100025 PO (13:03)
[2020-12-22] MEDS ORDERED: MULT-1085 PO (13:03)
[2020-12-22] MEDS ORDERED: ASCO-10 PO (13:03)
[2020-12-22] MEDS: mineral oil 133ml enema RC PRN ×2 (15:03→15:57)
--- NOTE | 2020-12-22 16:35 | NUR ---
CALLED TO HOSPITALIST FOR NUTRIENT FOR NG TUBE
[2020-12-22 22:00] VITALS: BP 133/80
[2020-12-23] MEDS: dextrose 5%-1/2 normal saline 1,000 ML IV SCH ×2 (01:05→23:45)
[2020-12-23 02:00] VITALS: BP 97/77
[2020-12-23] MEDS ORDERED: VANCOMYCIN LEVEL IV SCH (03:00)
--- NOTE | 2020-12-23 06:23 | NUR ---
Patient in room [facility]TH[facility] 4008. I have received report from Pennie REY and had the opportunity to ask questions and assume patient care.
[2020-12-23 06:27] VITALS: BP 110/80
[2020-12-23] MEDS: morphine 2 MG/ML inj. syringe IV PRN ×2 (06:39→11:47)
[2020-12-23 07:16] LABS: BASOPHILS % (AUTO) 0.1 % (0-1); EOSINOPHILS % (AUTO) 0 % (0-6); HEMOGLOBIN 11.6 g/dl (14.0-17.9); LYMPHOCYTES # (AUTO) 0.4 X10'3 (1.1-4.8); MEAN CORPUSCULAR HEMOGLOBIN 27.8 PG (27.0-31.0); MONOCYTES # (AUTO) 0.1 X10'3 (0-0.9)
[2020-12-23 07:17] LABS: HEMATOCRIT 35.1 % (42.0-52.0); LYMPHOCYTES % (AUTO) 4.8 % (21-51); MEAN CORPUSCULAR HGB CONC 33.1 g/dL (33.0-36.5); MEAN CORPUSCULAR VOLUME 83.9 FL (78-98); MEAN PLATELET VOLUME 9.6 FL (7.4-10.4); MONOCYTES % (AUTO) 1.6 % (2-12); NEUTROPHILS # (AUTO) 6.9 X10'3 (1.8-7.7); NEUTROPHILS % (AUTO) 93.5 % (42-75); PLATELET COUNT 184 X10'3 (140-440); RED BLOOD COUNT 4.18 X10'6 (4.70-6.10); RED CELL DISTRIBUTION WIDTH 15.6 % (11.5-14.5); WHITE BLOOD COUNT 7.4 X10'3 (4.5-11.0)
[2020-12-23 07:35] LABS: ALBUMIN 1.9 G/DL (3.4-5.0); ANION GAP 12 (8-16); BLOOD UREA NITROGEN 102 MG/DL (7-18); BUN/CREATININE RATIO 22.5 (5.4-32.0); CALCIUM 8.5 MG/DL (8.5-10.1); CHLORIDE 113 MMOL/L (99-107); CREATININE 4.54 MG/DL (0.60-1.10); GLUCOSE 148 MG/DL (70-104); POTASSIUM 3.6 MMOL/L (3.5-5.1); SODIUM 147 MMOL/L (135-145); TOTAL CARBON DIOXIDE 21.7 MMOL/L (24-32); VANCOMYCIN,RANDOM 14.8 UG/ML; eGFR 13 ML/MIN
[2020-12-23] MEDS: dexamethasone inj 10 MG in normal saline 50ml IV soln 50 ML IV SCH ×2 (07:46→23:13)
[2020-12-23] MEDS: heparin, porcine 5000 units/ml vial SQ SCH ×2 (07:46→23:13)
[2020-12-23] MEDS ORDERED: vancomycin inj. 750 MG in normal saline 250ml IV soln 250 ML IV ONE (07:55)
[2020-12-23] MEDS: docusate sod 100mg capsule PO SCH ×2 (08:00→20:00)
[2020-12-23] MEDS: docusate sodium 100mg/10ml UD cup PO SCH ×2 (08:00→20:00)
[2020-12-23] MEDS: CefTRIAXone/D5W-Rocephin 1gm 50 ML IV SCH (08:51)
[2020-12-23] MEDS: normal saline 1000ml 1,000 ML IV SCH ×2 (09:50→19:50)
[2020-12-23 10:00] VITALS: BP 132/88
[2020-12-23] MEDS ORDERED: mineral oil 133ml enema RC ONE (11:30)
--- NOTE | 2020-12-23 11:42 | NUR ---
Malnutrition/Stu/TF Consults: Pt admit DX FTT, COVID-19 PNA, sepsis, MELA, hypernatremia, and metabolic encephalopathy per MD note. Hx advanced dementia non-verbal at baseline currently AOx0, and lives alone per EMR. BMI 11.8 however no scaled wt this admit or prior scaled wt hx. Pt visibly cachectic per MD note and RN today; severe muscle/fat wasting evident w/ predicted suboptimal intake meets severe malnutrition criteria. MD notified. NG placed w/ TF to start today per MD however RN reports pending new NG today as pt pulled initial one. TF recs below using IBW given no wt hx. Noted constipation w/ fecal ball in rectum and increased stool in colon per CT note; s/p enema BID 12/22 w/ resulting moderate BM per EMR. Serum Na 147 down from 154 receiving D5/NS at 50ml/hr though likely to be weaned w/ EN advancement. Stu 12 w/ skin intact. Will continue to monitor for TF tolerance and adjustment needs. Rec: 1. Continuous NGTF per MD using Vital AF at 65ml/hr goal; to provide 1560ml volume/day, 1872 kcals, 1264ml water, and 117g protein. 2. additional water flush 150ml Q4H; monitor serum Na and adjustment needs. Consider stopping D5/NS once EN advanced per MD discretion 3. PALB Q ; daily scaled wts 4. 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 monitor for TF tolerance; high chance of refeeding given FTT, cachexia, and malnutrition status Addendum: 12/23/20 at [address] Amended: Links added.
--- NOTE | 2020-12-23 12:38 | NUR ---
Attempted NG tube insertion, resistance met in both nares not allowing advancement. Upon removal from left nare observed small amount of reginald red blood.
[2020-12-23 16:57] VITALS: BP 136/77
--- NOTE | 2020-12-23 18:46 | NUR ---
Problems reprioritized. Patient report given, questions answered & plan of care reviewed with Prabhjot REY.
[2020-12-23] MEDS: lactobacillus rhamnosus 10,000 MMU CELLS/CAPSULE PO SCH (20:00)
[2020-12-23 22:00] VITALS: BP 149/90
[2020-12-24 02:00] VITALS: BP 94/61
[2020-12-24 06:00] VITALS: BP 130/73
[2020-12-24] MEDS: docusate sod 100mg capsule PO SCH ×2 (07:19→20:00)
[2020-12-24] MEDS: lactobacillus rhamnosus 10,000 MMU CELLS/CAPSULE PO SCH ×2 (07:20→20:00)
[2020-12-24] MEDS: docusate sodium 100mg/10ml UD cup PO SCH ×2 (07:20→20:00)
[2020-12-24] MEDS: mineral oil 133ml enema RC SCH (07:39)
[2020-12-24] MEDS: heparin, porcine 5000 units/ml vial SQ SCH ×2 (07:39→21:35)
[2020-12-24] MEDS: dexamethasone inj 10 MG in normal saline 50ml IV soln 50 ML IV SCH ×2 (07:40→21:33)
[2020-12-24] MEDS: CefTRIAXone/D5W-Rocephin 1gm 50 ML IV SCH (07:40)
[2020-12-24] MEDS: morphine 2 MG/ML inj. syringe IV PRN ×3 (07:57→17:13)
[2020-12-24 08:20] LABS: BASOPHILS % (AUTO) 0.2 % (0-1); EOSINOPHILS % (AUTO) 0 % (0-6); HEMATOCRIT 34.9 % (42.0-52.0); HEMOGLOBIN 11.3 g/dl (14.0-17.9); LYMPHOCYTES # (AUTO) 0.1 X10'3 (1.1-4.8); LYMPHOCYTES % (AUTO) 1.5 % (21-51); MEAN CORPUSCULAR HEMOGLOBIN 27.3 PG (27.0-31.0); MEAN CORPUSCULAR HGB CONC 32.5 g/dL (33.0-36.5); MEAN CORPUSCULAR VOLUME 84.2 FL (78-98); MEAN PLATELET VOLUME 9.5 FL (7.4-10.4); MONOCYTES # (AUTO) 0.1 X10'3 (0-0.9); MONOCYTES % (AUTO) 1.2 % (2-12); NEUTROPHILS # (AUTO) 8.5 X10'3 (1.8-7.7); NEUTROPHILS % (AUTO) 97.1 % (42-75); PLATELET COUNT 134 X10'3 (140-440); RED BLOOD COUNT 4.14 X10'6 (4.70-6.10); RED CELL DISTRIBUTION WIDTH 15.7 % (11.5-14.5); WHITE BLOOD COUNT 8.8 X10'3 (4.5-11.0)
[2020-12-24 10:28] LABS: ALANINE AMINOTRANSFERASE 24 U/L (12-78); ALBUMIN 1.6 G/DL (3.4-5.0); ALBUMIN/GLOBULIN RATIO 0.4 (1.1-1.5); ALKALINE PHOSPHATASE 42 IU/L (46-116); ANION GAP 10 (8-16); ASPARTATE AMINO TRANSFERASE 27 U/L (10-37); BILIRUBIN,TOTAL 0.2 MG/DL (0.1-1.0); BLOOD UREA NITROGEN 85 MG/DL (7-18); CALCIUM 8.5 MG/DL (8.5-10.1); CHLORIDE 125 MMOL/L (99-107); CREATININE 3.27 MG/DL (0.60-1.10); GLUCOSE 171 MG/DL (70-104); POTASSIUM 4.5 MMOL/L (3.5-5.1); TOTAL PROTEIN 6.1 G/DL (6.4-8.2); eGFR 19 ML/MIN
[2020-12-24 10:33] LABS: SODIUM 160 MMOL/L (135-145)
[2020-12-24 12:12] LABS: PREALBUMIN 8.6 MG/DL (19-36); VANCOMYCIN,RANDOM 17.2 UG/ML
[2020-12-24] MEDS: dextrose 5%-water 1,000 ML IV SCH ×2 (12:50→22:26)
[2020-12-24 14:00] VITALS: BP 137/81
[2020-12-24] MEDS: normal saline 1000ml 1,000 ML IV SCH (15:50)
--- NOTE | 2020-12-24 17:37 | NUR ---
PAGER ID: [phone] MESSAGE: [phone]: Mariana Martinez: Unable with two RNs trying to get NG tube down
[2020-12-24 18:00] VITALS: BP 127/91
--- NOTE | 2020-12-24 18:05 | NUR ---
Patient in room [facility]THO 4008. I have received report from CANDIDO Thomas and had the opportunity to ask questions and assume patient care.
[2020-12-24 18:31] LABS: ALBUMIN 1.6 G/DL (3.4-5.0); ANION GAP 12 (8-16); BLOOD UREA NITROGEN 78 MG/DL (7-18); CALCIUM 7.8 MG/DL (8.5-10.1); CHLORIDE 115 MMOL/L (99-107); CREATININE 2.69 MG/DL (0.60-1.10); POTASSIUM 4.5 MMOL/L (3.5-5.1); SODIUM 147 MMOL/L (135-145); TOTAL CARBON DIOXIDE 20.4 MMOL/L (24-32); eGFR 23 ML/MIN
[2020-12-24 19:08] LABS: GLUCOSE 549 MG/DL (70-104)
--- NOTE | 2020-12-24 19:15 | NUR ---
I checked the pt's blood sugar because the lab called with a critical blood sugar of 549 and he was never that high before on the labs for his glucose. I did a blood sugar via [employer] and it was 149.
[2020-12-24 22:00] VITALS: BP 127/68
[2020-12-25] MEDS: dextrose 5%-1/2 normal saline 1,000 ML IV SCH (00:30)
[2020-12-25 02:00] VITALS: BP 123/71
[2020-12-25 05:00] VITALS: BP 133/69
[2020-12-25] MEDS: morphine 2 MG/ML inj. syringe IV PRN ×2 (05:44→11:42)
--- NOTE | 2020-12-25 06:20 | NUR ---
Problems reprioritized. Patient report given, questions answered & plan of care reviewed with CANDIDO Thomas.
--- NOTE | 2020-12-25 06:30 | NUR ---
PAGER ID: [phone] MESSAGE: [id number]: Karina Joana: would you like labs ordered for pt? Addendum: 12/25/20 at 8548 by William Cueva RN mistaken entry, disregard above note
[2020-12-25] MEDS: docusate sodium 100mg/10ml UD cup PO SCH ×2 (08:00→20:20)
[2020-12-25] MEDS: lactobacillus rhamnosus 10,000 MMU CELLS/CAPSULE PO SCH ×2 (08:00→20:00)
[2020-12-25] MEDS: dexamethasone inj 10 MG in normal saline 50ml IV soln 50 ML IV SCH ×2 (08:00→20:20)
[2020-12-25] MEDS: mineral oil 133ml enema RC SCH (08:00)
[2020-12-25] MEDS: docusate sod 100mg capsule PO SCH ×2 (08:00→20:00)
[2020-12-25] MEDS: heparin, porcine 5000 units/ml vial SQ SCH ×2 (08:00→20:00)
[2020-12-25 08:45] LABS: ALBUMIN 1.6 G/DL (3.4-5.0); ANION GAP 12 (8-16); BLOOD UREA NITROGEN 77 MG/DL (7-18); BUN/CREATININE RATIO 34.5 (5.4-32.0); CALCIUM 8.3 MG/DL (8.5-10.1); CHLORIDE 123 MMOL/L (99-107); CREATININE 2.23 MG/DL (0.60-1.10); GLUCOSE 216 MG/DL (70-104); POTASSIUM 4.7 MMOL/L (3.5-5.1); TOTAL CARBON DIOXIDE 21.7 MMOL/L (24-32); VANCOMYCIN,RANDOM 10.2 UG/ML; eGFR 29 ML/MIN
[2020-12-25 08:51] LABS: SODIUM 157 MMOL/L (135-145)
[2020-12-25] MEDS: dextrose 5%-water 1,000 ML IV SCH ×2 (09:02→23:01)
[2020-12-25 10:00] VITALS: BP 155/82
[2020-12-25 12:06] LABS: BASOPHILS % (AUTO) 0.2 % (0-1); EOSINOPHILS % (AUTO) 0 % (0-6); HEMATOCRIT 32.6 % (42.0-52.0); HEMOGLOBIN 10.7 g/dl (14.0-17.9); LYMPHOCYTES # (AUTO) 0.2 X10'3 (1.1-4.8); LYMPHOCYTES % (AUTO) 1.7 % (21-51); MEAN CORPUSCULAR HEMOGLOBIN 27.5 PG (27.0-31.0); MEAN CORPUSCULAR HGB CONC 32.8 g/dL (33.0-36.5); MEAN CORPUSCULAR VOLUME 83.9 FL (78-98); MEAN PLATELET VOLUME 10.1 FL (7.4-10.4); MONOCYTES # (AUTO) 0.1 X10'3 (0-0.9); MONOCYTES % (AUTO) 0.9 % (2-12); NEUTROPHILS # (AUTO) 9.4 X10'3 (1.8-7.7); NEUTROPHILS % (AUTO) 97.2 % (42-75); PLATELET COUNT 79 X10'3 (140-440); RED BLOOD COUNT 3.88 X10'6 (4.70-6.10); RED CELL DISTRIBUTION WIDTH 15.9 % (11.5-14.5); WHITE BLOOD COUNT 9.7 X10'3 (4.5-11.0)
[2020-12-25 12:41] LABS: BURR CELLS 1+; PLATELET ESTIMATE DECREASED
[2020-12-25 12:42] LABS: ELLIPTOCYTES FEW; SCHISTOCYTES FEW
[2020-12-25 14:00] VITALS: BP 160/89
[2020-12-25] MEDS ORDERED: vancomycin inj. 750 MG in normal saline 250ml IV soln 250 ML IV ONE (14:50)
--- NOTE | 2020-12-25 16:05 | NUR ---
F/u 12/25: Noted pt requiring multiple attempts w/ corpak placement after removing first corpak requiring IR per MD note. Latest KUB shows enteric tip in mid esophagus pointing upward per EMR. TF yet to be started receiving D5 at 100ml/hr since 12/24 providing 408 kcals/day. Addendum: 12/25/20 at [address] Amended: Links added.
[2020-12-25 18:00] VITALS: BP 159/79
--- NOTE | 2020-12-25 19:12 | NUR ---
Patient in room [facility]TH[facility] 4008. I have received report from RON REY and had the opportunity to ask questions and assume patient care.
--- NOTE | 2020-12-25 20:38 | NUR ---
PLT 79, MD NOTIFIED AND RC'D ORDER FROM DR. EUCEDA TO HOLD HEPARIN TONIGHT
[2020-12-25 22:00] VITALS: BP 136/70
[2020-12-26 02:00] VITALS: BP 135/84
[2020-12-26 06:00] VITALS: BP 145/101
--- NOTE | 2020-12-26 06:30 | NUR ---
Problems reprioritized. Patient report given, questions answered & plan of care reviewed with CHASITY REY.
--- NOTE | 2020-12-26 07:30 | NUR ---
Gastric residual at this time was 450ml from the NGT corpak tube. Held tube feeding immediately and kept the D5W IVF running at the present rate. I notified charge nurse Tod REY about this issue. I requested for review of our policy about the tube feeding residual.
[2020-12-26] MEDS: docusate sodium 100mg/10ml UD cup PO SCH ×2 (07:59→20:09)
[2020-12-26] MEDS: docusate sod 100mg capsule PO SCH ×2 (07:59→20:00)
[2020-12-26] MEDS: dexamethasone inj 10 MG in normal saline 50ml IV soln 50 ML IV SCH ×2 (08:00→20:06)
[2020-12-26] MEDS: heparin, porcine 5000 units/ml vial SQ SCH (08:00)
[2020-12-26] MEDS: lactobacillus rhamnosus 10,000 MMU CELLS/CAPSULE PO SCH ×2 (08:00→20:00)
[2020-12-26 08:27] LABS: BASOPHILS % (AUTO) 0.2 % (0-1); EOSINOPHILS % (AUTO) 0 % (0-6); LYMPHOCYTES # (AUTO) 0.1 X10'3 (1.1-4.8); MONOCYTES # (AUTO) 0.1 X10'3 (0-0.9)
[2020-12-26 08:29] LABS: HEMATOCRIT 33.3 % (42.0-52.0); HEMOGLOBIN 10.7 g/dl (14.0-17.9); LYMPHOCYTES % (AUTO) 1.2 % (21-51); MEAN CORPUSCULAR HEMOGLOBIN 27.4 PG (27.0-31.0); MEAN CORPUSCULAR HGB CONC 32.2 g/dL (33.0-36.5); MEAN CORPUSCULAR VOLUME 85.2 FL (78-98); MEAN PLATELET VOLUME 11.5 FL (7.4-10.4); NEUTROPHILS # (AUTO) 10.8 X10'3 (1.8-7.7); NEUTROPHILS % (AUTO) 97.6 % (42-75); PLATELET COUNT 52 X10'3 (140-440); RED BLOOD COUNT 3.91 X10'6 (4.70-6.10); RED CELL DISTRIBUTION WIDTH 15.5 % (11.5-14.5); WHITE BLOOD COUNT 11.1 X10'3 (4.5-11.0)
[2020-12-26] MEDS: morphine 2 MG/ML inj. syringe IV PRN ×2 (08:46→15:33)
[2020-12-26 08:59] LABS: ALBUMIN 1.5 G/DL (3.4-5.0); ANION GAP 9 (8-16); BLOOD UREA NITROGEN 61 MG/DL (7-18); BUN/CREATININE RATIO 35.7 (5.4-32.0); CHLORIDE 109 MMOL/L (99-107); CREATININE 1.71 MG/DL (0.60-1.10); POTASSIUM 4.5 MMOL/L (3.5-5.1); SODIUM 140 MMOL/L (135-145); TOTAL CARBON DIOXIDE 21.8 MMOL/L (24-32); VANCOMYCIN,RANDOM 13.7 UG/ML; eGFR 40 ML/MIN
[2020-12-26 09:09] LABS: GLUCOSE 517 MG/DL (70-104)
[2020-12-26 09:12] LABS: PLATELET ESTIMATE DECREASED
[2020-12-26 09:13] LABS: LARGE PLATELETS FEW
[2020-12-26 09:14] LABS: ANISOCYTOSIS 1+
[2020-12-26 09:15] LABS: ACANTHOCYTES 1+; BURR CELLS 1+; SCHISTOCYTES FEW
--- NOTE | 2020-12-26 09:39 | NUR ---
Paged Dr. Hernadez PAGER ID: [phone] MESSAGE: Ortho/Neuro Sof[facility] [phone]. RE: Juan Acevedo. Patient glucose on BMP @0753am was 517 got result @0920am from lab. Capillary glucose was 155 when I checked. Platelet 52 today, I did not give Heparin SQ.
[2020-12-26 10:00] VITALS: BP 141/82
[2020-12-26] MEDS: ceFAZolin/D5W- 1GM premix 50 ML IV SCH ×2 (10:08→16:34)
--- NOTE | 2020-12-26 10:09 | NUR ---
NGT residual this time was 30ml. Continued rate at the present 45 ml/hr, will not increase at this time due to high residual volume of 450 ml about 1 hour ago.
[2020-12-26] MEDS: dextrose 5%-water 1,000 ML IV SCH (11:01)
[2020-12-26] MEDS: mineral oil 133ml enema RC SCH (11:02)
--- NOTE | 2020-12-26 11:54 | NUR ---
Reassessment: Per f/u KUB 12/25 Corpak tip resides in the mid stomach. TF has been started, currently running at 45 mL/hr and working towards goal rate of 65 mL/hr. Pt overall tolerating TF however documented with an elevated GRV of 450 mL this morning at 08:00. F/u gastric residual check at 10:09 was 30 mL/hr. Recommend continuing with advancing to goal rate as pt tolerates. IF GRV becomes elevated again, consider advancing Corpak for post-pyloric feedings. Pt continues receiving D5 at 100 mL/hr while TF was held d/t elevated GRV. Recommend discontinuing D5 as TF tolerance improves and rate increases. [facility] 12/23, receiving routine bowel care. Will continue to follow closely. Recommendations: 1. Continuous NGTF per MD using Vital AF at 65ml/hr goal; to provide 1560ml volume/day, 1872 kcals, 1264ml water, and 117g protein. 2. Additional 150 mL water flush Q4H; monitor serum Na and need to adjust 3. Consider stopping D5 with EN advancement per MD discretion 4. PALB q /; daily scaled wts 5. 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 Consider advancing Corpak for post-pyloric feeding if pt with poor TF tolerance; consider PEG for custodial nutrition if within patient's POC Addendum: 12/26/20 at [address] Amended: Links added.
--- NOTE | 2020-12-26 12:45 | NUR ---
SCD applied on patient's both legs
--- NOTE | 2020-12-26 12:49 | NUR ---
NGT residual this time was 350ml. I aspirated 2 small strands of blood clot at this time. Will let the MD know
--- NOTE | 2020-12-26 12:55 | NUR ---
Paged Dr. Hernadez Ortho/Neuro ext [phone]. Juan Peña. I aspirated small blood clots from the stomach upon gastric residual check. Residual volume at this time is 350ml. Patient not on any Protonix, do you want me to start him on IV Protonix?
--- NOTE | 2020-12-26 13:00 | NUR ---
Decreased tube feeding rate to 20 ml/hr per Dr. Hernadez's instruction.
[2020-12-26] MEDS: pantoprazole 40 MG vial IV SCH (13:21)
[2020-12-26 14:00] VITALS: BP 123/77
--- NOTE | 2020-12-26 15:26 | NUR ---
Dietitian Vee called, I gave her update about the tube feeding high residual volume today consistently and that Dr. Hernadez ordered to decrease the tube feeding rate to 20 ml/hr.
--- NOTE | 2020-12-26 15:36 | NUR ---
F/u: TC with RN regarding patient's nutrition. Per RN patient's GRV remains in the 300s so MD requested TF be turned down to 20 mL/hr at this time. Per RN small blood clots were aspirated from the stomach upon gastric residual check. Upon d/w RN noted that pt had not previously been receiving Mineral oil enema or Colace, though RN reports pt did receive both today. LBM 12/23. Hopeful that patient's tolerance to TF will improve following a BM. No bowel obstruction documented in KUB report. D/w RN recommendation for Corpak advancement for post-pyloric feeding and/or prokinetic agent with MD approval to assist with TF tolerance. Will continue to follow closely. Addendum: 12/26/20 at [address] Amended: Links added.
--- NOTE | 2020-12-26 17:17 | NUR ---
Late entry: Dr. Hernadez was notified about patient being in a lot of pain and that at the time of talking to him on the phone, I told him that patient just had Morphine 2mg IV. I mentioned to him the right groin swelling that I was not sure if this was something new or not as it is my first time with him. He gave me order to increase Morphine 2mg IV to Q2hrs PRN
[2020-12-26 18:00] VITALS: BP 127/75
--- NOTE | 2020-12-26 18:27 | NUR ---
Problems reprioritized. Patient report given, questions answered & plan of care reviewed with Joycelyn REY.
[2020-12-26 22:00] VITALS: BP 121/85
[2020-12-27] MEDS: ceFAZolin/D5W- 1GM premix 50 ML IV SCH ×3 (01:28→16:03)
[2020-12-27 02:00] VITALS: BP 118/72
--- NOTE | 2020-12-27 02:18 | NUR ---
I noted that patient was down to 85%spo2 on 8 liters of oxygen so I placed his NRB mask at 15liters on and he is 95%spo2 now.
[2020-12-27 06:00] VITALS: BP 109/79
--- NOTE | 2020-12-27 06:00 | NUR ---
wearing 9 liters nc and 15 liters nrb mask Addendum: 12/27/20 at 0609 by Jennifer Sahu RN Amended: Links added.
[2020-12-27 06:29] LABS: EOSINOPHILS % (AUTO) 0 % (0-6); HEMOGLOBIN 11.1 g/dl (14.0-17.9); LYMPHOCYTES # (AUTO) 0.2 X10'3 (1.1-4.8); MONOCYTES # (AUTO) 0.2 X10'3 (0-0.9); MONOCYTES % (AUTO) 1.5 % (2-12); PLATELET COUNT 56 X10'3 (140-440)
[2020-12-27 06:32] LABS: BASOPHILS % (AUTO) 0.1 % (0-1); HEMATOCRIT 33.3 % (42.0-52.0); LYMPHOCYTES % (AUTO) 1.8 % (21-51); MEAN CORPUSCULAR HEMOGLOBIN 27.6 PG (27.0-31.0); MEAN CORPUSCULAR HGB CONC 33.2 g/dL (33.0-36.5); MEAN CORPUSCULAR VOLUME 83.1 FL (78-98); MEAN PLATELET VOLUME 11.3 FL (7.4-10.4); NEUTROPHILS # (AUTO) 10.6 X10'3 (1.8-7.7); NEUTROPHILS % (AUTO) 96.6 % (42-75); RED BLOOD COUNT 4.01 X10'6 (4.70-6.10); RED CELL DISTRIBUTION WIDTH 15.2 % (11.5-14.5)
[2020-12-27 06:41] LABS: ALBUMIN 1.6 G/DL (3.4-5.0); ANION GAP 11 (8-16); BLOOD UREA NITROGEN 59 MG/DL (7-18); BUN/CREATININE RATIO 41.5 (5.4-32.0); C-REACTIVE PROTEIN 5.18 MG/DL (0.0-0.5); CALCIUM 8.3 MG/DL (8.5-10.1); CHLORIDE 118 MMOL/L (99-107); CREATININE 1.42 MG/DL (0.60-1.10); D-DIMER 4.24 MG/L FEU (0-0.50); GLUCOSE 150 MG/DL (70-104); POTASSIUM 4.5 MMOL/L (3.5-5.1); SODIUM 152 MMOL/L (135-145); TOTAL CARBON DIOXIDE 22.6 MMOL/L (24-32); eGFR 49 ML/MIN
--- NOTE | 2020-12-27 06:49 | NUR ---
Patient in room ORTHO 4008. I have received report from CANDIDO STEELE and had the opportunity to ask questions and assume patient care.
[2020-12-27] MEDS: docusate sod 100mg capsule PO SCH ×2 (08:00→20:00)
[2020-12-27] MEDS: lactobacillus rhamnosus 10,000 MMU CELLS/CAPSULE PO SCH ×2 (08:00→20:00)
[2020-12-27] MEDS: pantoprazole 40 MG vial IV SCH (09:00)
[2020-12-27] MEDS: docusate sodium 100mg/10ml UD cup PO SCH ×2 (09:00→21:24)
[2020-12-27] MEDS: morphine 2 MG/ML inj. syringe IV PRN ×2 (09:04→21:26)
[2020-12-27 10:00] VITALS: BP 133/86
[2020-12-27] MEDS: mineral oil 133ml enema RC SCH (11:10)
[2020-12-27] MEDS: dexamethasone inj 10 MG in dextrose 5%-water 100 ML IV SCH ×2 (11:11→21:23)
[2020-12-27] MEDS ORDERED: morphine ORAL 5MG/0.25 ML (Conc. morphine) oral syringe PO PRN (17:40)
[2020-12-27 18:00] VITALS: BP 145/88
--- NOTE | 2020-12-27 18:44 | NUR ---
Problems reprioritized. Patient report given, questions answered & plan of care reviewed with CANDIDO GONZALEZ.
[2020-12-27 22:00] VITALS: BP 125/72
[2020-12-28] MEDS: ceFAZolin/D5W- 1GM premix 50 ML IV SCH ×4 (00:07→23:46)
[2020-12-28 02:00] VITALS: BP 113/72
[2020-12-28 06:00] VITALS: BP 100/59
--- NOTE | 2020-12-28 06:23 | NUR ---
Patient in room ORTHO 4008. I have received report from CANDIDO GONZALEZ and had the opportunity to ask questions and assume patient care.
--- NOTE | 2020-12-28 06:24 | NUR ---
Problems reprioritized. Patient report given, questions answered & plan of care reviewed with nurys Moeller.
[2020-12-28 06:57] LABS: BASOPHILS % (AUTO) 0.1 % (0-1); EOSINOPHILS % (AUTO) 0 % (0-6); HEMOGLOBIN 10.2 g/dl (14.0-17.9); RED CELL DISTRIBUTION WIDTH 15.5 % (11.5-14.5)
[2020-12-28 06:59] LABS: HEMATOCRIT 30.8 % (42.0-52.0); LYMPHOCYTES # (AUTO) 0.2 X10'3 (1.1-4.8); LYMPHOCYTES % (AUTO) 2.1 % (21-51); MEAN CORPUSCULAR HEMOGLOBIN 27.5 PG (27.0-31.0); MEAN CORPUSCULAR VOLUME 83.1 FL (78-98); MEAN PLATELET VOLUME 11.7 FL (7.4-10.4); MONOCYTES # (AUTO) 0.1 X10'3 (0-0.9); MONOCYTES % (AUTO) 1.8 % (2-12); NEUTROPHILS # (AUTO) 7.8 X10'3 (1.8-7.7); PLATELET COUNT 65 X10'3 (140-440); WHITE BLOOD COUNT 8.1 X10'3 (4.5-11.0)
[2020-12-28 07:09] LABS: D-DIMER 3.37 MG/L FEU (0-0.50)
[2020-12-28 07:26] LABS: ALBUMIN 1.4 G/DL (3.4-5.0); ANION GAP 9 (8-16); BLOOD UREA NITROGEN 57 MG/DL (7-18); C-REACTIVE PROTEIN 9.33 MG/DL (0.0-0.5); CALCIUM 8.1 MG/DL (8.5-10.1); CHLORIDE 119 MMOL/L (99-107); CREATININE 1.39 MG/DL (0.60-1.10); GLUCOSE 159 MG/DL (70-104); POTASSIUM 4.5 MMOL/L (3.5-5.1); PREALBUMIN 11.9 MG/DL (19-36); SODIUM 151 MMOL/L (135-145); TOTAL CARBON DIOXIDE 22.7 MMOL/L (24-32); eGFR 50 ML/MIN
[2020-12-28 07:53] LABS: LARGE PLATELETS FEW; PLATELET ESTIMATE DECREASED
[2020-12-28] MEDS: lactobacillus rhamnosus 10,000 MMU CELLS/CAPSULE PO SCH ×2 (08:00→20:00)
[2020-12-28] MEDS: docusate sod 100mg capsule PO SCH (08:00)
[2020-12-28] MEDS: docusate sodium 100mg/10ml UD cup PO SCH ×2 (08:44→19:36)
[2020-12-28] MEDS: pantoprazole 40 MG vial IV SCH (08:44)
[2020-12-28] MEDS: mineral oil 133ml enema RC SCH (08:45)
[2020-12-28] MEDS: morphine 2 MG/ML inj. syringe IV PRN (08:47)
[2020-12-28] MEDS: dexamethasone inj 10 MG in dextrose 5%-water 100 ML IV SCH ×2 (09:48→19:36)
[2020-12-28 10:00] VITALS: BP 106/62
[2020-12-28] MEDS: bisacodyl 10mg suppository rectal RC PRN (11:23)
[2020-12-28 14:00] VITALS: BP 127/71
--- NOTE | 2020-12-28 17:33 | NUR ---
Itz Maurer called to check on pt. Gave very brief, vague update. Told itz to contact Randi, conservator, if needing more info. Called Randi to notify her about call with [employer]. Randi to update itz.
[2020-12-28 18:00] VITALS: BP 128/84
--- NOTE | 2020-12-28 18:18 | NUR ---
Problems reprioritized. Patient report given, questions answered & plan of care reviewed with CANDIDO Pimentel.
--- NOTE | 2020-12-28 18:41 | NUR ---
Patient in room ORTHO 4008. I have received report from nurys Moeller and had the opportunity to ask questions and assume patient care.
[2020-12-28 22:00] VITALS: BP 144/72
[2020-12-29] MEDS: morphine 2 MG/ML inj. syringe IV PRN ×4 (01:28→22:58)
[2020-12-29 02:00] VITALS: BP 147/88
[2020-12-29 06:00] VITALS: BP 127/73
--- NOTE | 2020-12-29 06:28 | NUR ---
Problems reprioritized. Patient report given, questions answered & plan of care reviewed with nurys Moeller.
--- NOTE | 2020-12-29 06:36 | NUR ---
Patient in room ORTHO 4008. I have received report from CANDIDO Pimentel and had the opportunity to ask questions and assume patient care.
[2020-12-29 07:03] LABS: BASOPHILS % (AUTO) 0.1 % (0-1); EOSINOPHILS % (AUTO) 0.1 % (0-6); LYMPHOCYTES # (AUTO) 0.4 X10'3 (1.1-4.8); MEAN CORPUSCULAR HGB CONC 33.4 g/dL (33.0-36.5); MEAN PLATELET VOLUME 11.3 FL (7.4-10.4); MONOCYTES # (AUTO) 0.2 X10'3 (0-0.9); MONOCYTES % (AUTO) 2.6 % (2-12); NEUTROPHILS # (AUTO) 7.4 X10'3 (1.8-7.7); PLATELET COUNT 89 X10'3 (140-440)
[2020-12-29 07:05] LABS: HEMATOCRIT 28.6 % (42.0-52.0); HEMOGLOBIN 9.5 g/dl (14.0-17.9); LYMPHOCYTES % (AUTO) 5.3 % (21-51); MEAN CORPUSCULAR HEMOGLOBIN 27.9 PG (27.0-31.0); MEAN CORPUSCULAR VOLUME 83.5 FL (78-98); NEUTROPHILS % (AUTO) 91.9 % (42-75); RED BLOOD COUNT 3.42 X10'6 (4.70-6.10); RED CELL DISTRIBUTION WIDTH 15.1 % (11.5-14.5)
[2020-12-29 07:14] LABS: D-DIMER 3.98 MG/L FEU (0-0.50)
[2020-12-29 07:32] LABS: ALBUMIN 1.4 G/DL (3.4-5.0); ANION GAP 6 (8-16); BLOOD UREA NITROGEN 55 MG/DL (7-18); BUN/CREATININE RATIO 48.7 (5.4-32.0); C-REACTIVE PROTEIN 6.39 MG/DL (0.0-0.5); CALCIUM 8.2 MG/DL (8.5-10.1); CHLORIDE 115 MMOL/L (99-107); CREATININE 1.13 MG/DL (0.60-1.10); GLUCOSE 143 MG/DL (70-104); POTASSIUM 4.5 MMOL/L (3.5-5.1); SODIUM 145 MMOL/L (135-145); TOTAL CARBON DIOXIDE 23.7 MMOL/L (24-32); eGFR 64 ML/MIN
[2020-12-29] MEDS: lactobacillus rhamnosus 10,000 MMU CELLS/CAPSULE PO SCH ×2 (08:00→20:00)
[2020-12-29 08:20] LABS: LARGE PLATELETS FEW; PLATELET ESTIMATE DECREASED
[2020-12-29 08:21] LABS: ACANTHOCYTES 1+; BURR CELLS FEW; ELLIPTOCYTES FEW
[2020-12-29] MEDS: ceFAZolin/D5W- 1GM premix 50 ML IV SCH ×3 (08:39→23:32)
[2020-12-29] MEDS: pantoprazole 40 MG vial IV SCH (08:39)
[2020-12-29] MEDS: docusate sodium 100mg/10ml UD cup PO SCH ×2 (08:39→19:46)
[2020-12-29] MEDS: mineral oil 133ml enema RC SCH (08:47)
[2020-12-29] MEDS: dexamethasone inj 10 MG in dextrose 5%-water 100 ML IV SCH ×2 (09:32→19:46)
[2020-12-29 10:00] VITALS: BP 101/53
--- NOTE | 2020-12-29 11:27 | NUR ---
Spoke with Dr. Hernadez, he agreed to advancing pt's tube feed. Advanced tube feeding to 40 mL/hr at 1126. Will continue to monitor residuals.
--- NOTE | 2020-12-29 12:00 | NUR ---
F/u 12/29: Pt TF remains at 20ml/hr past 2.5 days w/ GRV WNL. Yet to meet patient's nutrition needs. GEOFFREY d/w RN regarding resuming TF at prior GRV's WNL this admit. Serum Na 145 down from 151 prior w/ free water increased to 200ml Q4H per MD. RN reports TF now advancing to goal per MD currently at 40ml/hr. RD recommends next to advance to 65ml/hr goal. LBM 12/28 small receiving routine colace and daily enema w/ last documented 12/22 per EMR. Will continue to monitor for nutrition support tolerance and adjustment needs. Recommendations: 1. Continuous NGTF per MD using Vital AF at 65ml/hr goal; to provide 1560ml volume/day, 1872 kcals, 1264ml water, and 117g protein. 2. Additional 200mL water flush Q4H per MD 3. PALB q /; daily scaled wts 4. Routine bowel care; 5 days constipation receiving routine colace/enema 5. Consider advancing Corpak for post-pyloric feeding if pt with poor TF tolerance; consider PEG for superintendent terminal nutrition if within patient's POC Addendum: 12/29/20 at [address] Amended: Links added.
[2020-12-29 14:00] VITALS: BP 159/75
[2020-12-29 18:00] VITALS: BP 114/63
--- NOTE | 2020-12-29 18:26 | NUR ---
Problems reprioritized. Patient report given, questions answered & plan of care reviewed with CANDIDO Pimentel.
--- NOTE | 2020-12-29 18:27 | NUR ---
Patient in room ORTHO 4008. I have received report from nurys Moeller and had the opportunity to ask questions and assume patient care.
--- NOTE | 2020-12-29 19:30 | NUR ---
per report, Dr Hernadez instructed to advance tube feeding. dietitian ok'd to advance to 65cc insted of 60cc/hr.
--- NOTE | 2020-12-29 19:45 | NUR ---
tube feeding rate changed to 65cc/hr. residual prior to rate change was 30cc.
[2020-12-29 22:00] VITALS: BP 136/68
[2020-12-30] MEDS: bisacodyl 10mg suppository rectal RC PRN (00:01)
[2020-12-30] MEDS: morphine 2 MG/ML inj. syringe IV PRN ×7 (01:06→21:36)
[2020-12-30 02:00] VITALS: BP 101/64
[2020-12-30 06:00] VITALS: BP 91/46
--- NOTE | 2020-12-30 06:45 | NUR ---
Problems reprioritized. Patient report given, questions answered & plan of care reviewed with nurys Levy.
--- NOTE | 2020-12-30 06:46 | NUR ---
Patient in room ORTHO 4008. I have received report from adria nuno and had the opportunity to ask questions and assume patient care.
[2020-12-30 07:01] LABS: BASOPHILS % (AUTO) 0.1 % (0-1); EOSINOPHILS % (AUTO) 0.1 % (0-6); HEMATOCRIT 30.1 % (42.0-52.0); HEMOGLOBIN 9.8 g/dl (14.0-17.9); LYMPHOCYTES # (AUTO) 0.4 X10'3 (1.1-4.8); LYMPHOCYTES % (AUTO) 5.5 % (21-51); MEAN CORPUSCULAR HEMOGLOBIN 27.4 PG (27.0-31.0); MEAN CORPUSCULAR HGB CONC 32.7 g/dL (33.0-36.5); MEAN CORPUSCULAR VOLUME 83.9 FL (78-98); MEAN PLATELET VOLUME 11.6 FL (7.4-10.4); MONOCYTES # (AUTO) 0.2 X10'3 (0-0.9); MONOCYTES % (AUTO) 2.5 % (2-12); NEUTROPHILS # (AUTO) 7.4 X10'3 (1.8-7.7); NEUTROPHILS % (AUTO) 91.8 % (42-75); PLATELET COUNT 150 X10'3 (140-440); RED BLOOD COUNT 3.59 X10'6 (4.70-6.10); RED CELL DISTRIBUTION WIDTH 15.6 % (11.5-14.5)
[2020-12-30] MEDS: lactobacillus rhamnosus 10,000 MMU CELLS/CAPSULE PO SCH ×2 (07:25→21:29)
[2020-12-30 07:31] LABS: ALBUMIN 1.4 G/DL (3.4-5.0); ANION GAP 10 (8-16); BLOOD UREA NITROGEN 46 MG/DL (7-18); BUN/CREATININE RATIO 48.4 (5.4-32.0); C-REACTIVE PROTEIN 3.45 MG/DL (0.0-0.5); CALCIUM 8.2 MG/DL (8.5-10.1); CHLORIDE 114 MMOL/L (99-107); CREATININE 0.95 MG/DL (0.60-1.10); GLUCOSE 165 MG/DL (70-104); POTASSIUM 4.5 MMOL/L (3.5-5.1); SODIUM 147 MMOL/L (135-145); TOTAL CARBON DIOXIDE 23.1 MMOL/L (24-32); eGFR 78 ML/MIN
[2020-12-30] MEDS: docusate sodium 100mg/10ml UD cup PO SCH ×2 (08:04→21:29)
[2020-12-30] MEDS: dexamethasone inj 10 MG in dextrose 5%-water 100 ML IV SCH ×2 (08:04→21:29)
[2020-12-30] MEDS: pantoprazole 40 MG vial IV SCH (08:04)
[2020-12-30 09:59] LABS: D-DIMER 4.03 MG/L FEU (0-0.50)
[2020-12-30 10:00] VITALS: BP 115/57
[2020-12-30] MEDS: ceFAZolin/D5W- 1GM premix 50 ML IV SCH ×2 (10:15→16:07)
[2020-12-30] MEDS: mineral oil 133ml enema RC SCH (10:32)
[2020-12-30 11:42] LABS: PLATELET ESTIMATE NORMAL
[2020-12-30 11:43] LABS: ANISOCYTOSIS 1+; LARGE PLATELETS FEW
[2020-12-30 11:44] LABS: ACANTHOCYTES 1+; BURR CELLS FEW; ELLIPTOCYTES FEW
[2020-12-30 14:00] VITALS: BP 98/58
[2020-12-30 18:00] VITALS: BP 111/67
--- NOTE | 2020-12-30 18:43 | NUR ---
Problems reprioritized. Patient report given, questions answered & plan of care reviewed with LINUS REY.
[2020-12-30 22:00] VITALS: BP 121/71
[2020-12-31] MEDS: ceFAZolin/D5W- 1GM premix 50 ML IV SCH ×3 (00:03→16:04)
[2020-12-31 02:00] VITALS: BP 110/67
[2020-12-31 06:00] VITALS: BP 113/73
--- NOTE | 2020-12-31 06:06 | NUR ---
spoke to david avalos and gave update regarding pts condition
[2020-12-31 07:05] LABS: EOSINOPHILS % (AUTO) 0 % (0-6); HEMOGLOBIN 10.7 g/dl (14.0-17.9); LYMPHOCYTES # (AUTO) 0.3 X10'3 (1.1-4.8)
[2020-12-31 07:08] LABS: BASOPHILS % (AUTO) 0.1 % (0-1); HEMATOCRIT 32.4 % (42.0-52.0); LYMPHOCYTES % (AUTO) 2.9 % (21-51); MEAN CORPUSCULAR HEMOGLOBIN 27.4 PG (27.0-31.0); MEAN CORPUSCULAR HGB CONC 32.9 g/dL (33.0-36.5); MEAN CORPUSCULAR VOLUME 83.2 FL (78-98); MEAN PLATELET VOLUME 11.3 FL (7.4-10.4); MONOCYTES # (AUTO) 0.2 X10'3 (0-0.9); MONOCYTES % (AUTO) 2.3 % (2-12); NEUTROPHILS # (AUTO) 10.4 X10'3 (1.8-7.7); NEUTROPHILS % (AUTO) 94.7 % (42-75); PLATELET COUNT 206 X10'3 (140-440); RED BLOOD COUNT 3.89 X10'6 (4.70-6.10); RED CELL DISTRIBUTION WIDTH 15.1 % (11.5-14.5)
[2020-12-31 07:11] LABS: ALBUMIN 1.5 G/DL (3.4-5.0); ANION GAP 8 (8-16); BLOOD UREA NITROGEN 46 MG/DL (7-18); BUN/CREATININE RATIO 40.7 (5.4-32.0); C-REACTIVE PROTEIN 7.82 MG/DL (0.0-0.5); CALCIUM 8.3 MG/DL (8.5-10.1); CHLORIDE 111 MMOL/L (99-107); CREATININE 1.13 MG/DL (0.60-1.10); GLUCOSE 116 MG/DL (70-104); POTASSIUM 5.1 MMOL/L (3.5-5.1); PREALBUMIN 17.9 MG/DL (19-36); SODIUM 144 MMOL/L (135-145); TOTAL CARBON DIOXIDE 25.2 MMOL/L (24-32); eGFR 64 ML/MIN
[2020-12-31 07:46] LABS: LARGE PLATELETS FEW; PLATELET ESTIMATE NORMAL
[2020-12-31 07:47] LABS: ACANTHOCYTES 1+; ELLIPTOCYTES FEW; SCHISTOCYTES FEW
[2020-12-31] MEDS: mineral oil 133ml enema RC SCH (08:00)
--- NOTE | 2020-12-31 09:11 | NUR ---
Spoke with dietary Madhav. Unsure why pt. is decreased to 20ml an hour. Noc shift reported residuals of 15 ml. package liner note states to advance corpack if not tolerating feedings. would need additional xray.
[2020-12-31] MEDS: pantoprazole 40 MG vial IV SCH (09:22)
[2020-12-31] MEDS: dexamethasone inj 10 MG in dextrose 5%-water 100 ML IV SCH ×2 (09:22→22:16)
[2020-12-31] MEDS: lactobacillus rhamnosus 10,000 MMU CELLS/CAPSULE PO SCH ×2 (09:23→22:17)
[2020-12-31] MEDS: docusate sodium 100mg/10ml UD cup PO SCH ×2 (09:23→20:00)
[2020-12-31] MEDS: morphine 2 MG/ML inj. syringe IV PRN ×2 (09:37→16:05)
[2020-12-31 10:00] VITALS: BP 107/71
--- NOTE | 2020-12-31 10:22 | NUR ---
Spoke with hospitalist while he was rounding. MD aware of dietary recommendations to advance corpack and to increase feeding by 20ml q6H to goal rate. MD does not want corpack advanced, and states pt may not be able to tolerate increased feeding at musical string maker's recommended rate. States to increase by 10ml/hour every 8 hours as tolerated to goal rate of 65 ml/ hour. Ok to keep obtaining residuals from corpack. Dietary notified.
--- NOTE | 2020-12-31 12:33 | NUR ---
Reassessment: Received TC from RN regarding patient's TF as there is a new order in place for TF rate to be 20 mL/hr per MD. Patient appears to be tolerating TF as GRV range 0-100 mL over the last 48 hours with the exception of one GRV 200 mL and one 450 mL, all WNL. RN d/w MD who okays to advance TF by 10 mL Q8H as tolerated and MD does not want Corpak to be advanced for post-pyloric feeding. TF rate advanced to 30 mL/hr this morning per RN. LBM 12/30, per RN pt with a BM for the last three consecutive days and is receiving routine bowel care. Pt seen by wound care, per WOC note pt with multiple DTIs to right shoulder with no open area, sacrococcygeal area with a large DTI with multiple partial thick openings, and right hip partial thick stage II with no signs of infection. Pt already with increased protein needs however has not had sufficient nutrition since admit given TF not being advanced to goal rate. Of note, there is a national product shortage of Vital AF, will place additional TF recommendations below for if TF formula needs to be substituted. Will continue to follow closely. Recommendations: 1. Continuous NGTF per MD using Vital AF at 65ml/hr goal; to provide 1560ml volume/day, 1872 kcals, 1264ml water, and 117g protein 2. IF OUT OF VITAL AF, substitute with Nepro at 45 mL/hr to provide 1080 mL total volume/day, 1944 kcal, 87 g protein, and 785 mL water. Will NOT meet estimated protein needs without overfeeding 3. Additional 200mL water flush Q4H per MD 4. PALB q /; daily scaled wts 5. Routine bowel care 6. 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
[2020-12-31 15:14] VITALS: BP 111/64
[2020-12-31 18:00] VITALS: BP 113/64
--- NOTE | 2020-12-31 18:40 | NUR ---
Increased pt. tube feed rate to 40 ml/ hour.
--- NOTE | 2020-12-31 18:41 | NUR ---
Problems reprioritized. Patient report given, questions answered & plan of care reviewed with Luigi REY.
--- NOTE | 2020-12-31 18:49 | NUR ---
Conservator updated via telephone.
[2020-12-31 22:00] VITALS: BP 117/67
[2021-01-01] VITALS (7 sets, daily range): BP systolic 89–134; BP diastolic 52–77
[2021-01-01] MEDS: ceFAZolin/D5W- 1GM premix 50 ML IV SCH ×4 (00:18→23:38)
[2021-01-01] MEDS: morphine 2 MG/ML inj. syringe IV PRN ×2 (02:38→05:52)
--- NOTE | 2021-01-01 06:11 | NUR ---
had tf residual of 100ml at midnight . tfs remained at 40ml/hr . 0400 residual 20ml . tf increased to 50ml/hr . pt had a bm overnight . desaturates to 86-87% with turning . 100% nrb placed for a short time of help pt recover . pt has more oral secretions noted. hob elevated 45 degrees.
[2021-01-01] MEDS: mineral oil 133ml enema RC SCH (08:00)
[2021-01-01] MEDS: docusate sodium 100mg/10ml UD cup PO SCH (08:00)
[2021-01-01] MEDS: dexamethasone inj 10 MG in dextrose 5%-water 100 ML IV SCH ×2 (09:43→20:00)
[2021-01-01] MEDS: lactobacillus rhamnosus 10,000 MMU CELLS/CAPSULE PO SCH ×2 (09:44→20:00)
[2021-01-01] MEDS: pantoprazole 40 MG vial IV SCH (09:44)
--- NOTE | 2021-01-01 14:49 | NUR ---
Hospitalist was rounding. Made aware of excessive secretions- no new orders at this time. states she may contact conservator to discuss pt. status
--- NOTE | 2021-01-01 18:57 | NUR ---
Gave report to Isaias REY
[2021-01-02 02:00] VITALS: BP 138/85
[2021-01-02 06:00] VITALS: BP 112/71
--- NOTE | 2021-01-02 06:43 | NUR ---
Patient in room ORTHO 4008. I have received report from CANDIDO Esparza and had the opportunity to ask questions and assume patient care.
--- NOTE | 2021-01-02 07:02 | NUR ---
Per CANDIDO Esparza patient TF was turned off last night due to increased amount of residual and gurgling and patient needed suctioning. TF still off at this time. HOB elevated greater than 30 degrees. Will continue to monitor.
[2021-01-02] MEDS: dexamethasone inj 10 MG in dextrose 5%-water 100 ML IV SCH (08:00)
[2021-01-02] MEDS: lactobacillus rhamnosus 10,000 MMU CELLS/CAPSULE PO SCH (08:00)
[2021-01-02] MEDS: pantoprazole 40 MG vial IV SCH (08:43)
[2021-01-02] MEDS: ceFAZolin/D5W- 1GM premix 50 ML IV SCH (08:43)
--- NOTE | 2021-01-02 09:07 | NUR ---
No TF residual. No gurgling sound after suctioned. TF @ 50ml/hr resumed. Will continue to monitor.
--- NOTE | 2021-01-02 10:00 | NUR ---
PAGER ID: [phone] MESSAGE: [phone]-Juan Acevedo- patient Spo2 is 39% and HR in the 40's. Having apneic episodes. - Espinoza [phone]
--- NOTE | 2021-01-02 10:08 | NUR ---
Dr Fair in to see patient.
--- NOTE | 2021-01-02 10:10 | NUR ---
RN IS TO DOCUMENT YES TO ALL APPLICABLE AREAS Pronouncement of : 1. Time Physician Notified: 2. Date of :01/02/2021 3. Time of : 1010 4. DNR/Withdraw life support documented:Y 5. Monitor strip has been placed on chart:Y 6. Assessment process is of one-minute duration and includes following criteria: a) Patient is unresponsive to all stimuli: Y b) Pupils fixed and non-reactive:Y c) Auscultation of precordium reveals absence of heart tones:Y d) Auscultation of lungs reveals absence of breath sounds:Y e) Absence of blood pressure / all vital signs:Y f) QRS complexes are not present on monitor / EKG strip: g) Pacer spikes without capture: 4. Comments: Dr. Fair was notified and was at patient's bedside at time of . Patient's conservator Randi notified and okayed to release body to [facility] in [place]. Donor network called and patient not a candidate for tissue donation.
--- NOTE | 2021-01-02 12:02 | NUR ---
[facility] [place] notified and will be picking up body.
--- NOTE | 2021-01-02 15:03 | NUR ---
Body released to [facility] and [facility] staff Geoff along with Patient belongings of shirt and underwear as well as hearing aids and batteries.
== END 2021-01-02 15:00 | DRG 871 ==
LOC: ER 11:43 → ED HOLD 17:57 → ORTHO 4S 12-22 21:35
PROVIDERS: ADMIT Internal Medicine; ATTEND Internal Medicine
PROC: 5A09357 Assistance with Respiratory Ventilation, Less than 24 Consecutive Hours, Continuous Positive Airway Pressure (ICD-10-PCS; principal; 2020-12-21)
PROC: 0T9B70Z Drainage of Bladder with Drainage Device, Via Natural or Artificial Opening (ICD-10-PCS; 2020-12-21)
PROC: 5A0935A Assistance with Respiratory Ventilation, Less than 24 Consecutive Hours, High Flow/Velocity Cannula (ICD-10-PCS; 2020-12-22)
PROC: 5A0935A Assistance with Respiratory Ventilation, Less than 24 Consecutive Hours, High Flow/Velocity Cannula (ICD-10-PCS; 2020-12-23)
PROC: 5A0935A Assistance with Respiratory Ventilation, Less than 24 Consecutive Hours, High Flow/Velocity Cannula (ICD-10-PCS; 2020-12-24)
PROC: 5A0935A Assistance with Respiratory Ventilation, Less than 24 Consecutive Hours, High Flow/Velocity Cannula (ICD-10-PCS; 2020-12-26)
PROC: 5A0945A Assistance with Respiratory Ventilation, 24-96 Consecutive Hours, High Flow/Velocity Cannula (ICD-10-PCS; 2020-12-27)
PROC: 5A0935A Assistance with Respiratory Ventilation, Less than 24 Consecutive Hours, High Flow/Velocity Cannula (ICD-10-PCS; 2020-12-31)
PROC: 5A0935A Assistance with Respiratory Ventilation, Less than 24 Consecutive Hours, High Flow/Velocity Cannula (ICD-10-PCS; 2021-01-01)
PROC: 5A0935A Assistance with Respiratory Ventilation, Less than 24 Consecutive Hours, High Flow/Velocity Cannula (ICD-10-PCS; 2021-01-02)
DX: A41.89 Other specified sepsis (principal); U07.1 COVID-19; J96.01 Acute respiratory failure with hypoxia; J12.82 Pneumonia due to coronavirus disease 2019; G93.41 Metabolic encephalopathy; E43 Unspecified severe protein-calorie malnutrition; N17.9 Acute kidney failure, unspecified; N39.0 Urinary tract infection, site not specified; J44.0 Chronic obstructive pulmonary disease with (acute) lower respiratory infection; Z68.1 Body mass index [BMI] 19.9 or less, adult; E87.0 Hyperosmolality and hypernatremia; D69.6 Thrombocytopenia, unspecified; Z66 Do not resuscitate; R62.7 Adult failure to thrive; F03.90 Unspecified dementia, unspecified severity, without behavioral disturbance, psychotic disturbance, mood disturbance, and anxiety; K59.00 Constipation, unspecified; R32 Unspecified urinary incontinence; Z78.1 Physical restraint status; Z86.73 Personal history of transient ischemic attack (TIA), and cerebral infarction without residual deficits; Z88.2 Allergy status to sulfonamides
CPT/HCPCS: 36415; 36600; 70450; 71045; 71250; 74018; 74176; 80048; 80053; 80202; 81001; 82803; 82948; 83605; 83690; 83735; 83880; 84134; 84145; 84443; 85008; 85018; 85025; 85379; 86140; 87040; 87077; 87081; 87088; 87186; 87635; 93005; 94660; 94760; 96374; 96375; 99291; C9113; C9803; G0378; J0690; J0696; J1100; J1644; J1956; J2270; J3370; J7030; J7050; J7060; J7070